=== PATIENT | female | born 1930 | race Caucasian/White ===

== ENCOUNTER 2019-04-01 13:51 | Inpatient (IN) | payer MEDICARE, BC ==
[2019-04-01] MEDS ORDERED: NS 0.9% 1000 ML** 1,000 ML IV ONE (14:06)
[2019-04-01] MEDS ORDERED: methylPREDNISolone 125 MG* 2 ML VIAL IV ONE (14:06)
[2019-04-01] MEDS ORDERED: Albuterol/Ipratropium NEB.SOL* Albuterol 2.5 MG/Ipratropium 0.5 MG 3 ML ONE (14:11)
[2019-04-01] MEDS: Albuterol/Ipratropium NEB.SOL* Albuterol 2.5 MG/Ipratropium 0.5 MG 3 ML INH SCH ×3 (14:14→14:20)
[2019-04-01 14:33] LABS: ABS Lymphocytes 0.3 10^3/ul (1.0-4.8); ABS Monocytes 0.4 10^3/ul (0-0.8); ABS Neutrophils 5.5 10^3/ul (1.5-7.7); Eosinophil % 0.5 %; Hematocrit 43 % (35-47); Hemoglobin 13.9 g/dL (12.0-16.0); Lymphocyte % 5.3 %; Mean Corpuscular HGB Conc 32 g/dL (31-36); Mean Corpuscular Hemoglobin 30 pg (27-31); Mean Corpuscular Volume 92 fL (80-97); Mean Platelet Volume 8.3 fL (7.4-10.4); Platelet Count 159 10^3/uL (150-450); Red Cell Distribution Width 14 % (10-15); White Blood Count 6.2 10^3/uL (3.5-10.8)
--- NOTE | 2019-04-01 14:43 | ED ---
Shortness of Breath - HPI Summary HPI Summary: Pt is an 88 y/o F presenting to the ED brought in by EMS for shortness of breath. LEVEL 5 CAVEAT: Pts full hx and physical is limited due to shortness of breath. EMS gave 1 Duoneb and 1 Albuterol neb. Her SaO2 was in the 80s on 4L O2 nasal cannula. Pts daughter states she has been feeling hot and cold recently, and has been fatigued since this past 03/30/19. - History of Current Complaint Chief Complaint: EDRespiratoryDistress Time Seen by Provider: 04/01/19 13:58 Hx Obtained From: Family/Shuttle Driver, EMS Hx From Patient Unobtainable Due To: Other - shortness of breath Onset/Duration: Gradual Onset, Lasting Days, Still Present Timing: Constant Current Severity: Severe Dyspnea At: Rest Aggravating Factors: Nothing Alleviating Factors: Nothing Associated Signs & Symptoms: Fever, Chills - Allergy/Home Medications Allergies/Adverse Reactions: Allergies Allergy/AdvReac Type Severity Reaction Status Date / Time No Known Allergies Allergy Verified 07/26/15 12:40 Home Medications: Home Medications Cholecalciferol TAB* [Vitamin D TAB*] 400 unit PO DAILY 04/01/19 [History Confirmed 04/01/19] Metoprolol Succinate XL TAB* [Toprol XL TAB*] 25 mg PO DAILY 04/01/19 [History Confirmed 04/01/19] Multivitamins/Minerals TAB* [Theragran/minerals TAB*] 1 tab PO DAILY 04/01/19 [ History Confirmed 04/01/19] PMH/Surg Hx/FS Hx/Imm Hx Previously Healthy: Yes Endocrine/Hematology History: Denies: Hx Diabetes Cardiovascular History: Reports: Hx Aneurysm - Abdominal, Hx Hypertension Respiratory History: Reports: 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 History: Denies: Hx Dialysis, Hx Renal Disease Musculoskeletal History: Reports: Other Musculoskeletal History - R hip fx and surgery Denies: Hx Back Problems Sensory History: Reports: Hx Glaucoma, Hx Macular Degeneration Denies: Hx Contacts or Glasses, Hx Hearing Aid Opthamlomology History: Reports: Hx Glaucoma, Hx Macular Degeneration Denies: Hx Contacts or Glasses Neurological History: Denies: Hx Dementia, Hx Seizures - Surgical History Surgery Procedure, Year, and Place: Pt reports R hip repair for fx in 2011, states placement of "a metal plate and 2 bolts" Infectious Disease History: No Infectious Disease History: Denies: Traveled Outside the [place] in Last 30 Days - Family History Known Family History: Positive: Other - FHx unobtainable d/t pt's shortness of breath - Social History Alcohol Use: None Alcohol Amount: drinks glass of wine before dinner every night Hx Substance Use: No Substance Use Type: Reports: None Hx Tobacco Use: Yes Smoking Status (MU): Former Smoker Review of Systems - ROS Summary Review of Systems Summary: LEVEL 5 CAVEAT: Full hx and physical unobtainable d/t pt's shortness of breath. Positive: Fever, Chills Positive: Shortness Of Breath All Other Systems Reviewed And Are Negative: No Physical Exam - Summary Physical Exam Summary: VITAL SIGNS: Reviewed. GENERAL: Patient is a well-developed and nourished elderly female who is older for her age. She has some anxiety secondary to her shortness of breath. HEAD AND FACE: No signs of trauma. No ecchymosis, hematomas or skull depressions. No sinus tenderness. EYES: PERRLA, EOMI x 2, No injected conjunctiva, no nystagmus. EARS: Hearing grossly intact. Ear canals and tympanic membranes are within normal limits. MOUTH: Oropharynx within normal limits. NECK: Supple, trachea is midline, no adenopathy, no JVD, no carotid bruit, no c- spine tenderness, neck with full ROM. CHEST: Symmetric, no tenderness at palpation. LUNGS: Unable to speak in full sentences. Decreased breath sounds bilaterally. Using intercostal muscles. CVS: Regular rate and rhythm, S1 and S2 present, no murmurs or gallops appreciated. ABDOMEN: Soft, non-tender. No signs of distention. No rebound, no guarding, and no masses palpated. Bowel sounds are normal. EXTREMITIES: FROM in all major joints, no edema, no cyanosis or clubbing. NEURO: Alert and oriented x 3. No acute neurological deficits. Speech is normal and follows commands. SKIN: Dry and warm. Triage Information Reviewed: Yes Vital Signs On Initial Exam: Initial Vitals Temp Pulse Resp BP Pulse Ox 98.7 F 81 28 210/77 88 04/01/19 13:59 04/01/19 13:59 04/01/19 13:59 04/01/19 13:59 04/01/19 13:59 Vital Signs Reviewed: Yes Procedures - Sedation Patient Received Moderate/Deep Sedation with Procedure: No Diagnostics - Vital Signs Vital Signs Temp Pulse Resp BP Pulse Ox 04/01/19 14:34 73 18 95 04/01/19 13:59 98.7 F 81 28 210/77 88 - Laboratory Lab Results: Lab Results 04/01/19 04/01/19 Range/Units 14:05 14:13 WBC 6.2 (3.5-10.8) 10^3/uL RBC 4.70 (3.70-4.87) 10^6 /uL Hgb 13.9 (12.0-16.0) g/dL Hct 43 (35-47) % MCV 92 (80-97) fL MCH 30 (27-31) pg MCHC 32 (31-36) g/dL RDW 14 (10-15) % Plt Count 159 (150-450) 10^3/uL MPV 8.3 (7.4-10.4) fL Neut % (Auto) 88.2 % Lymph % (Auto) 5.3 % [place] % (Auto) 5.8 % Eos % (Auto) 0.5 % Baso % (Auto) 0.2 % Absolute Neuts (auto) 5.5 (1.5-7.7) 10^3/ul Absolute Lymphs (auto) 0.3 L (1.0-4.8) 10^3/ul Absolute Monos (auto) 0.4 (0-0.8) 10^3/ul Absolute Eos (auto) 0.0 (0-0.6) 10^3/ul Absolute Basos (auto) 0.0 (0-0.2) 10^3/ul Absolute Nucleated RBC 0.0 10^3/ul Nucleated RBC % 0.0 Patient Temperature Not Reportable ABG pH 7.17 L* (7.35-7.45) ABG pH (Temp Correct) Not Reportable ABG pCO2 Not Reportable ABG pCO2 (Temp Corrct Pending ABG pO2 64 L (80-100) mmHg ABG pO2 (Temp Correct Not Reportable ABG HCO3 TNP ABG O2 Saturation 92.0 L (94.0-98.0) % ABG Base Excess TNP Respiration Rate Not Reportable O2 Delivery Device nasal cannula 6lpm Ventilator Type Not Reportable Vent Mode Not Reportable FiO2 Not Reportable Inspiratory Time Not Reportable PEEP Not Reportable Pressure Support Not Reportable Pressure Control Not Reportable EPAP Not Reportable IPAP Not Reportable BiPAP Not Reportable Result Diagrams: 04/01/19 14:13 04/01/19 14:17 Lab Statement: Any lab studies that have been ordered have been reviewed, and results considered in the medical decision making process. - Radiology CXR Radiology Interpretation Completed By: Radiologist Summary of Radiographic Findings: PULMONARY INTERSTITIAL EDEMA WITH BILATERAL, RIGHT GREATER THAN LEFT, PLEURAL fusions. ED physician has reviewed this report. - EKG 1427 Cardiac Rate: NL - 79bpm EKG Rhythm: Sinus Rhythm ST Segment: Other Ectopy: None EKG Comparison: No Significant Change Summary of EKG Findings: EKG at 1427 shows NSR at 79bpm with ST elevations in lead I, aVL, v2, and v3. Similar to last EKG on 04/01/18. ED physician has reviewed and interpreted this report. Course/Dx - Course Assessment/Plan: Patient is an 88-year-old female who presents to the emergency department with a chief complaint of having shortness of breath. Patient has a history of COPD. The patient seems to be with respiratory distress therefore the present patient in oxygen, monitor, was to do an IV access the patient started with Solu-Medrol and DuoNebs. ABG shows a pH of 7.15, PCO2 more than 125, O2 sat 98. Therefore the patient was placed on BiPAP. CMP were normal limits except for chloride of 89, carbon dioxide 44, BUN 27, glucose 125, CRP 44 and BMP. I 121. Chest x-ray impression: Interstitial edema bilaterally, the right greater than left pleural effusion. At this point the patient is feeling better with the BiPAP. I discussed my physical exam and findings with Dr. Chow from the hospitalist services who accepted the patient for admission. - Diagnoses Provider Diagnoses: COPD exacerbation, Respiratory failure - Physician Notifications Discussed Care of Patient With: Deena Chow Time Discussed With Above Provider: 15:00 Instructed by Provider To: Admit As Inpatient Discharge ED - Sign-Out/Discharge Documenting (check all that apply): Patient Departure - Discharge Plan Condition: Stable Disposition: ADMITTED TO [facility] - Billing Disposition and Condition Condition: STABLE Disposition: Admitted to [facility] - Attestation Statements Document Initiated by Vince: Yes Documenting Scribe: Misa Van Provider For Whom Vince is Documenting (Include Credential): Christoph Bearden MD. Scribe Attestation: IMisa, scribed for Christoph Bearden MD. on 04/01/19 at 1855. Scribe Documentation Reviewed: Yes Provider Attestation: The documentation as recorded by the scribe, Misa Van accurately reflects the service I personally performed and the decisions made by me, Christoph Bearden MD. Status of Scribe Document: Viewed
[2019-04-01 14:55] LABS: Activated Partial Thrombo Time 33.3 seconds (26.0-38.0); INR 0.89 (0.82-1.09); Troponin I 0.03 ng/mL (<0.04)
[2019-04-01 14:57] LABS: CKMB ng/mL 4.4 ng/mL (0.6-6.3)
[2019-04-01 15:09] LABS: Albumin 3.6 g/dL (3.2-5.2); Albumin/Globulin Ratio 1.1 (1-3); BUN/Creatinine Ratio 32.5 (8-20); C Reactive Protein 44.46 mg/L (<8.01); Calcium 9.3 mg/dL (8.6-10.3); EGFR African American 78.5 (>60); EGFR Non-African American 64.9 (>60); Globulin 3.4 g/dL (2-4); Potassium 4.8 mmol/L (3.5-5.0); Total Bilirubin 0.5 mg/dL (0.2-1.0)
[2019-04-01] MEDS ORDERED: hydrALAZINE IV* 20 MG/ML VIAL IV SLOW PU PRN (15:35)
[2019-04-01] MEDS ORDERED: Albuterol 2.5 MG/3 ML NEB.SOL* (0.083%) INH SCH (16:00)
--- NOTE | 2019-04-01 16:36 | HP ---
CC: DELON Landon * HISTORY AND PHYSICAL: DATE OF ADMISSION: 04/01/19 PRIMARY CARE PROVIDER: DELON Landon CHIEF COMPLAINT: Shortness of breath. HISTORY OF PRESENT ILLNESS: Ms. Fisher is an 88-year-old female who has a history of O2 dependent COPD, who presents to the emergency room with complaints of shortness of breath. The patient's daughter provides all of the history as the patient is on the BiPAP. The patient's daughter states that at baseline, the patient becomes short of breath such as ambulating to the bathroom which is a short distance. Over the last 2 days, however, the patient has been short of breath at rest and has been grunting. The patient's daughter has recognized the patient was struggling. Sunday evening, the patient was noted to be hypoxic to 55% when her O2 had slipped off. Her oxygen was replaced and the patient did better. The patient again became hypoxic overnight. The patient has had no appetite. She has had no significant cough. When she does cough, it is dry. She has not had any fevers or chills. PAST MEDICAL HISTORY: 1. COPD. 2. Hypertension. 3. Hyperlipidemia. 4. Diastolic congestive heart failure. 5. Pulmonary hypertension. PAST SURGICAL HISTORY: Left hip ORIF. MEDICATIONS: 1. Vitamin D 400 units p.o. daily. 2. Multivitamin 1 tab p.o. daily. 3. Aspirin 81 mg p.o. daily. 4. Metoprolol XL 25 mg p.o. daily. 5. Lasix 20 mg p.o. daily. 6. Lipitor 40 mg p.o. daily. 7. Travoprost 1 drop to both eyes at bedtime. 8. Timolol 1 drop to the left eye twice daily. ALLERGIES: No known drug allergies. FAMILY HISTORY: Mom of CVA. Dad had emphysema. SOCIAL HISTORY: The patient quit smoking in 2010. She smoked for most of her life. She does drink a small glass of wine before dinner. 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 She is . She has 6 children, 2 of which are . The patient's daughter, who is present, states that there is no healthcare proxy designated as the patient's children would all like to make the decisions together. REVIEW OF SYSTEMS: Unobtainable from the patient. PHYSICAL EXAMINATION GENERAL: The patient is a well-developed elderly female, seen sitting upright in the stretcher, somewhat lethargic, but response to voice and in no acute distress, on BiPAP. VITAL SIGNS: Blood pressure 179/73, pulse 77, respirations 19, temp 98.7, O2 sat 95% on BiPAP. HEENT: Pupils are round. Extraocular muscles are intact. Oropharynx is dry. There is no submandibular, cervical, or supraclavicular adenopathy. PULMONARY: Breath sounds are markedly diminished throughout. There is very poor air movement. There is no wheezing noted. CARDIAC: Normal S1, S2. Regular rate and rhythm. I do not appreciate any murmurs, though heart sounds are very distant. There is no lower extremity edema. ABDOMEN: Bowel sounds are present. Abdomen is soft, nontender, nondistended. MUSCULOSKELETAL: There is no cyanosis or clubbing of the digits. There is full active range of motion of all 4 extremities. NEURO: Exam is deferred at this point due to the patient's lethargy. PSYCH: The patient is lethargic as noted above. SKIN: Warm and dry. There are no rashes. DIAGNOSTIC STUDIES/LAB DATA: WBC 6.2, hemoglobin 13.9, hematocrit 43, platelets 159. INR 0.89. Sodium 137, potassium 4.8, chloride 89, CO2 of 44, BUN 27, creatinine 0.83, glucose 123, lactic acid 0.6, calcium 9.3. Bilirubin 0.5, AST 31, ALT 21, alk phos 90. CK-MB 4.4. Troponin 0.03. CRP 44.46. BNP 521. Albumin 3.6. ABG 7.17/greater than 125/64, on 6 L nasal cannula. Chest x-ray reveals pulmonary interstitial edema with bilateral right greater than left pleural effusions. EKG reveals normal sinus rhythm with right bundle branch block. There are no acute ST-T wave abnormalities. ASSESSMENT AND PLAN: Ms. Fisher is an 88-year-old female with a history of O2 dependent chronic obstructive pulmonary disease with a chronic hypoxic respiratory failure and hypertension, who presents to the emergency room with complaints of shortness of breath for the last few days and was found to be in hypercarbic respiratory failure. 1. Hypercarbic respiratory failure likely secondary to chronic obstructive pulmonary disease. The patient's ABG reveals pCO2 of greater than 125. Her pH is markedly low at 7.17. The patient has been initiated on BiPAP and with this , she has become slightly more alert per her daughter. We will follow ABG testing to ensure that her CO2 is improving. I have confirmed with the patient' s daughter that the patient is a do not resuscitate and do not intubate. The patient will be treated for a chronic obstructive pulmonary disease exacerbation as the cause of her hypercarbic respiratory failure. She will have azithromycin 500 mg IV daily, Solu-Medrol 40 mg IV q.8 hours and standing nebulizer treatments. We will follow up tomorrow to see if she is able to be liberated from the BiPAP. 2. Hypertension. BP is markedly elevated at this time. The patient will be maintained on her usual home medication regimen and in addition, I will add p.r.n. hydralazine for systolic blood pressures greater than 170. 3. DVT prophylaxis. According to the Adult Thrombosis Prophylaxis Risk Factor Assessment Guide, the patient has a total risk factor score of 4 making her high risk. She will be placed on Lovenox 40 mg subcutaneous daily. 4. Code status is DNR/DNI. TIME SPENT: Sixty-five minutes was spent admitting this patient. [id number]/[facility] #: [id number] JESSICA
[2019-04-01] MEDS: Atorvastatin* 40 MG TAB PO SCH (18:00)
[2019-04-01] MEDS: Azithromycin 500 mg/250 ml NS 500 MG/250 ML BAG IVPB SCH (18:01)
[2019-04-01] MEDS: Albuterol 2.5 MG/3 ML NEB.SOL* (0.083%) INH SCH ×2 (19:42→23:10)
[2019-04-01] MEDS: Timolol 0.5% OPTH.SOL* BTL LEFT EYE SCH (20:35)
[2019-04-01] MEDS: methylPREDNISolone SOD 40 MG* 1 ML VIAL IV SCH (21:34)
[2019-04-01] MEDS: Latanoprost 0.005%* 2.5 ml BTL BOTH EYES SCH (21:35)
[2019-04-01] MEDS: Enoxaparin(*) 40 MG/0.4 ML SYR SUBCUT SCH (21:35)
[2019-04-02] MEDS: Albuterol 2.5 MG/3 ML NEB.SOL* (0.083%) INH SCH ×4 (02:59→19:32)
[2019-04-02] MEDS: methylPREDNISolone SOD 40 MG* 1 ML VIAL IV SCH ×3 (05:06→22:30)
[2019-04-02 05:28] LABS: Hematocrit 38 % (35-47); Mean Corpuscular HGB Conc 32 g/dL (31-36); Mean Corpuscular Hemoglobin 29 pg (27-31); Mean Corpuscular Volume 92 fL (80-97); Mean Platelet Volume 8.7 fL (7.4-10.4); Platelet Count 148 10^3/uL (150-450); Red Blood Count 4.11 10^6 /uL (3.70-4.87); Red Cell Distribution Width 13 % (10-15); White Blood Count 3.2 10^3/uL (3.5-10.8)
[2019-04-02 05:40] LABS: BUN/Creatinine Ratio 36.5 (8-20); Calcium 8.7 mg/dL (8.6-10.3); EGFR African American 89.6 (>60); EGFR Non-African American 74.1 (>60)
[2019-04-02 05:51] LABS: Potassium 5.3 mmol/L (3.5-5.0)
[2019-04-02 06:28] LABS: Urine Appearance Cloudy; Urine Bacteria Absent (Absent); Urine Bilirubin Negative (Negative); Urine Blood 1+ (Negative); Urine Color Yellow; Urine Glucose Negative (Negative); Urine Ketones Negative (Negative); Urine Nitrite Negative (Negative); Urine Protein 1+(30 mg/dL) (Negative); Urine Red Blood Cell Absent (Absent); Urine Squamous Epithelial Cell Present (Absent); Urine Transitional Epithelial Present (Absent); Urine Urobilinogen Negative (Negative); Urine White Blood Cell 2+(11-20/hpf) (Absent)
[2019-04-02] MEDS: Metoprolol Succinate XL TAB* 25 MG PO SCH (09:19)
[2019-04-02] MEDS: Multivitamins/Minerals TAB PO SCH (09:19)
[2019-04-02] MEDS: Timolol 0.5% OPTH.SOL* BTL LEFT EYE SCH ×2 (09:19→22:15)
[2019-04-02] MEDS: Aspirin EC TAB* 81 MG TAB.EC PO SCH (09:19)
--- NOTE | 2019-04-02 09:59 | PN ---
Subjective Date of Service: 04/02/19 Interval History: Pt is feeling much better today. She is much more alert and close to her baseline per her daughter. Her breathing is comfortable currently. Objective Active Medications: Albuterol (Ventolin 2.5 Mg/3 Ml Neb.Kitty*) 2.5 mg INH Q4H [facility] Last Admin: 04/02/19 08:06 Dose: 2.5 mg Aspirin (Aspirin Ec Tab*) 81 mg PO DAILY [facility] Last Admin: 04/02/19 09:19 Dose: 81 mg Atorvastatin Calcium (Lipitor*) 40 mg PO 1700 [facility] Last Admin: 04/01/19 18:00 Dose: Not Given Enoxaparin Sodium (Lovenox(*)) 40 mg SUBCUT Q24H [facility] Last Admin: 04/01/19 21:35 Dose: 40 mg Hydralazine HCl (Apresoline Iv*) 5 mg IV SLOW PU Q6H PRN PRN Reason: SBP>170 Azithromycin (Zithromax 500 Mg/250 Ml) 500 mg in 250 mls @ 250 mls/hr IVPB Q24H [facility] Last Admin: 04/01/19 18:01 Dose: 250 mls/hr Latanoprost (Xalatan 0.005%*) 1 drop BOTH EYES BEDTIME [facility] Last Admin: 04/01/19 21:35 Dose: Not Given Methylprednisolone Sodium Succinate (Solu-Medrol 40 Mg) 40 mg IV Q8HR [facility] Last Admin: 04/02/19 05:06 Dose: 40 mg Metoprolol Succinate (Toprol Xl Tab*) 25 mg PO DAILY [facility] Last Admin: 04/02/19 09:19 Dose: 25 mg Multivitamins/Minerals (Theragran/Minerals Tab*) 1 tab PO DAILY [facility] Last Admin: 04/02/19 09:19 Dose: 1 tab Timolol Maleate (Timoptic 0.5% Opth*) 1 drop LEFT EYE BID [facility] Last Admin: 04/02/19 09:19 Dose: 1 drop Vital Signs - 8 hr 04/02/19 04/02/19 04/02/19 02:00 02:01 02:25 Temperature Pulse Rate 84 85 Respiratory 22 24 29 Rate Blood Pressure 102/49 (mmHg) O2 Sat by Pulse 97 100 Oximetry 04/02/19 04/02/19 04/02/19 02:59 03:00 03:01 Temperature Pulse Rate 80 79 Respiratory 20 15 22 Rate Blood Pressure 86/49 (mmHg) O2 Sat by Pulse 100 100 Oximetry 04/02/19 04/02/19 04/02/19 03:15 04:00 05:00 Temperature 99.9 F Pulse Rate 81 87 Respiratory 25 18 24 Rate Blood Pressure 86/47 116/41 (mmHg) O2 Sat by Pulse 100 99 Oximetry 04/02/19 04/02/19 04/02/19 05:01 06:00 06:10 Temperature Pulse Rate 83 79 79 Respiratory 20 20 34 Rate Blood Pressure 86/72 88/43 91/45 (mmHg) O2 Sat by Pulse 99 98 98 Oximetry 04/02/19 04/02/19 04/02/19 06:12 07:00 07:30 Temperature 98.5 F Pulse Rate 80 77 Respiratory 19 24 Rate Blood Pressure 93/46 97/51 (mmHg) O2 Sat by Pulse 99 99 Oximetry 04/02/19 04/02/19 08:00 08:15 Temperature Pulse Rate 79 90 Respiratory 23 20 Rate Blood Pressure 92/53 (mmHg) O2 Sat by Pulse 99 95 Oximetry Oxygen Devices in Use Now: Nasal Cannula Appearance: Elderly female sitting up in bed, NAD Eyes: No Scleral Icterus Ears/Nose/Mouth/Throat: Mucous Membranes Moist Respiratory: Symmetrical Chest Expansion and Respiratory Effort, Clear to Auscultation - much improved air movement Cardiovascular: NL Sounds; No Murmurs; No JVD, RRR, No Edema Abdominal: NL Sounds; No Tenderness; No Distention Extremities: No Clubbing, Cyanosis Skin: No Nodules or Sclerosis Neurological: Alert and Oriented x 3 Result Diagrams: 04/02/19 05:14 04/02/19 05:14 Additional Lab and Data: Lab Results 04/01/19 04/01/19 Range/Units 14:05 14:13 WBC 6.2 (3.5-10.8) 10^3/uL RBC 4.70 (3.70-4.87) 10^6 /uL Hgb 13.9 (12.0-16.0) g/dL Hct 43 (35-47) % MCV 92 (80-97) fL MCH 30 (27-31) pg MCHC 32 (31-36) g/dL RDW 14 (10-15) % Plt Count 159 (150-450) 10^3/uL MPV 8.3 (7.4-10.4) fL Neut % (Auto) 88.2 % Lymph % (Auto) 5.3 % Bent % (Auto) 5.8 % Eos % (Auto) 0.5 % Baso % (Auto) 0.2 % Absolute Neuts (auto) 5.5 (1.5-7.7) 10^3/ul Absolute Lymphs (auto) 0.3 L (1.0-4.8) 10^3/ul Absolute Monos (auto) 0.4 (0-0.8) 10^3/ul Absolute Eos (auto) 0.0 (0-0.6) 10^3/ul Absolute Basos (auto) 0.0 (0-0.2) 10^3/ul Absolute Nucleated RBC 0.0 10^3/ul Nucleated RBC % 0.0 Patient Temperature Not Reportable ABG pH 7.17 L* (7.35-7.45) ABG pH (Temp Correct) Not Reportable ABG pCO2 Not Reportable ABG pCO2 (Temp Corrct Pending ABG pO2 64 L (80-100) mmHg ABG pO2 (Temp Correct Not Reportable ABG HCO3 TNP ABG O2 Saturation 92.0 L (94.0-98.0) % ABG Base Excess TNP Respiration Rate Not Reportable O2 Delivery Device nasal cannula 6lpm Ventilator Type Not Reportable Vent Mode Not Reportable FiO2 Not Reportable Inspiratory Time Not Reportable PEEP Not Reportable Pressure Support Not Reportable Pressure Control Not Reportable EPAP Not Reportable IPAP Not Reportable BiPAP Not Reportable Assess/Plan/Problems-Billing Ms Fisher is an 88 yo F who has a h/o COPD with chronic hypoxic respiratory failure, HTN and diastolic CHF who presented to the ER with lethargy and was found to be in hypercapnic respiratory failure. - Patient Problems (1) Acute on chronic respiratory failure with hypercapnia Current Visit: Yes Status: Acute Code(s): J96.22 - ACUTE AND CHRONIC RESPIRATORY FAILURE WITH HYPERCAPNIA SNOMED Code(s): 9512331479870 Comment: Last ABG obtained last night showed improvement in the pCO2 though it was still markedly elevated. I think she would benefit from BiPAP with sleep. Will try to qualify her to have this set up on d/c. (2) Diastolic CHF Current Visit: Yes Status: Acute Code(s): I50.30 - UNSPECIFIED DIASTOLIC ( CONGESTIVE) HEART FAILURE SNOMED Code(s): 941488637 Comment: No signs of exacerbation. Continue to hold lasix for now but will likely resume in the next 24-36hr. (3) COPD (chronic obstructive pulmonary disease) Current Visit: Yes Status: Acute Code(s): J44.9 - CHRONIC OBSTRUCTIVE PULMONARY DISEASE, UNSPECIFIED SNOMED Code(s): 14296007 Comment: Likely COPD exacerbation lead to hypercapnic respiratory failure. Continue solumedrol, azithromycin and nebs. Pt much improved today. (4) Hypertension Current Visit: Yes Status: Acute Code(s): I10 - ESSENTIAL (PRIMARY) HYPERTENSION SNOMED Code(s): 32985062 Comment: BP much improved today but now slightly low- will monitor. (5) DVT prophylaxis Current Visit: Yes Status: Acute Code(s): UGU3689 - SNOMED Code(s): 851484886 Comment: lovenox (6) DNR (do not resuscitate) Current Visit: Yes Status: Acute
[2019-04-02] MEDS: Azithromycin 500 mg/250 ml NS 500 MG/250 ML BAG IVPB SCH (17:31)
[2019-04-02] MEDS: Atorvastatin* 40 MG TAB PO SCH (17:31)
[2019-04-02] MEDS: Latanoprost 0.005%* 2.5 ml BTL BOTH EYES SCH (22:18)
[2019-04-02] MEDS: Enoxaparin(*) 40 MG/0.4 ML SYR SUBCUT SCH (22:19)
[2019-04-03] MEDS: Albuterol 2.5 MG/3 ML NEB.SOL* (0.083%) INH SCH ×4 (00:52→18:54)
[2019-04-03] MEDS: methylPREDNISolone SOD 40 MG* 1 ML VIAL IV SCH ×3 (05:26→21:48)
[2019-04-03] MEDS: Aspirin EC TAB* 81 MG TAB.EC PO SCH (08:22)
[2019-04-03] MEDS: Multivitamins/Minerals TAB PO SCH (08:23)
[2019-04-03] MEDS: Metoprolol Succinate XL TAB* 25 MG PO SCH (08:25)
[2019-04-03] MEDS: Timolol 0.5% OPTH.SOL* BTL LEFT EYE SCH ×2 (08:27→21:48)
--- NOTE | 2019-04-03 14:13 | PN ---
Subjective Date of Service: 04/03/19 Interval History: Pt is feeling well. She denies any SOB currently. O2 was being weaned down by respiratory and when checked her O2 sat was 80%. Placed on oxymask and 10L. No significant cough. Objective Active Medications: Albuterol (Ventolin 2.5 Mg/3 Ml Neb.Kitty*) 2.5 mg INH [id number] AWAKE [facility] Last Admin: 04/03/19 12:20 Dose: 2.5 mg Aspirin (Aspirin Ec Tab*) 81 mg PO DAILY [facility] Last Admin: 04/03/19 08:22 Dose: 81 mg Atorvastatin Calcium (Lipitor*) 40 mg PO 1700 [facility] Last Admin: 04/02/19 17:31 Dose: 40 mg Enoxaparin Sodium (Lovenox(*)) 40 mg SUBCUT Q24H [facility] Last Admin: 04/02/19 22:19 Dose: 40 mg Hydralazine HCl (Apresoline Iv*) 5 mg IV SLOW PU Q6H PRN PRN Reason: SBP>170 Azithromycin (Zithromax 500 Mg/250 Ml) 500 mg in 250 mls @ 250 mls/hr IVPB Q24H [facility] Last Admin: 04/02/19 17:31 Dose: 250 mls/hr Latanoprost (Xalatan 0.005%*) 1 drop BOTH EYES BEDTIME [facility] Last Admin: 04/02/19 22:18 Dose: 1 drop Methylprednisolone Sodium Succinate (Solu-Medrol 40 Mg) 40 mg IV Q8HR [facility] Last Admin: 04/03/19 05:26 Dose: 40 mg Metoprolol Succinate (Toprol Xl Tab*) 25 mg PO DAILY [facility] Last Admin: 04/03/19 08:25 Dose: 25 mg Multivitamins/Minerals (Theragran/Minerals Tab*) 1 tab PO DAILY [facility] Last Admin: 04/03/19 08:23 Dose: 1 tab Timolol Maleate (Timoptic 0.5% Opth*) 1 drop LEFT EYE BID [facility] Last Admin: 04/03/19 08:27 Dose: 1 drop Vital Signs - 8 hr 04/03/19 04/03/19 04/03/19 07:14 07:18 07:38 Temperature 98.1 F Pulse Rate 82 76 Respiratory 18 18 18 Rate Blood Pressure 98/44 (mmHg) O2 Sat by Pulse 97 99 Oximetry 04/03/19 04/03/19 04/03/19 08:17 11:08 12:23 Temperature 98.3 F Pulse Rate 79 75 Respiratory 22 17 Rate Blood Pressure 154/60 170/59 (mmHg) O2 Sat by Pulse 93 98 Oximetry Oxygen Devices in Use Now: Nasal Cannula Appearance: Elderly female lying in bed, NAD Eyes: No Scleral Icterus Ears/Nose/Mouth/Throat: Mucous Membranes Moist Respiratory: Symmetrical Chest Expansion and Respiratory Effort, - - diminished breath sounds throughout-less air movement than yesterday Cardiovascular: NL Sounds; No Murmurs; No JVD, RRR, No Edema Abdominal: NL Sounds; No Tenderness; No Distention Extremities: No Clubbing, Cyanosis Skin: No Nodules or Sclerosis Neurological: - - sleepy but easily arousable Result Diagrams: 04/02/19 05:14 04/02/19 05:14 Additional Lab and Data: Lab Results 04/01/19 04/01/19 Range/Units 14:05 14:13 WBC 6.2 (3.5-10.8) 10^3/uL RBC 4.70 (3.70-4.87) 10^6 /uL Hgb 13.9 (12.0-16.0) g/dL Hct 43 (35-47) % MCV 92 (80-97) fL MCH 30 (27-31) pg MCHC 32 (31-36) g/dL RDW 14 (10-15) % Plt Count 159 (150-450) 10^3/uL MPV 8.3 (7.4-10.4) fL Neut % (Auto) 88.2 % Lymph % (Auto) 5.3 % Mckenzie % (Auto) 5.8 % Eos % (Auto) 0.5 % Baso % (Auto) 0.2 % Absolute Neuts (auto) 5.5 (1.5-7.7) 10^3/ul Absolute Lymphs (auto) 0.3 L (1.0-4.8) 10^3/ul Absolute Monos (auto) 0.4 (0-0.8) 10^3/ul Absolute Eos (auto) 0.0 (0-0.6) 10^3/ul Absolute Basos (auto) 0.0 (0-0.2) 10^3/ul Absolute Nucleated RBC 0.0 10^3/ul Nucleated RBC % 0.0 Patient Temperature Not Reportable ABG pH 7.17 L* (7.35-7.45) ABG pH (Temp Correct) Not Reportable ABG pCO2 Not Reportable ABG pCO2 (Temp Corrct Pending ABG pO2 64 L (80-100) mmHg ABG pO2 (Temp Correct Not Reportable ABG HCO3 TNP ABG O2 Saturation 92.0 L (94.0-98.0) % ABG Base Excess TNP Respiration Rate Not Reportable O2 Delivery Device nasal cannula 6lpm Ventilator Type Not Reportable Vent Mode Not Reportable FiO2 Not Reportable Inspiratory Time Not Reportable PEEP Not Reportable Pressure Support Not Reportable Pressure Control Not Reportable EPAP Not Reportable IPAP Not Reportable BiPAP Not Reportable Microbiology and Other Data: Microbiology 04/01/19 14:17 Aerobic Blood Culture - Preliminary Blood Venous No Growth Day 1 Anaerobic Blood Culture - Preliminary No Growth Day 1 04/01/19 14:22 Aerobic Blood Culture - Preliminary Blood Venous No Growth Day 1 Anaerobic Blood Culture - Preliminary No Growth Day 1 Assess/Plan/Problems-Billing Ms Fisher is an 88 yo F who has a h/o COPD with chronic hypoxic respiratory failure, HTN and diastolic CHF who presented to the ER with lethargy and was found to be in hypercapnic respiratory failure. - Patient Problems (1) Acute on chronic respiratory failure with hypercapnia Current Visit: Yes Status: Acute Code(s): J96.22 - ACUTE AND CHRONIC RESPIRATORY FAILURE WITH HYPERCAPNIA SNOMED Code(s): 1502286655729 Comment: Improved with use of BiPAP with sleep. I am trying to qualify the patient for BiPAP at home. (2) COPD (chronic obstructive pulmonary disease) Current Visit: Yes Status: Acute Code(s): J44.9 - CHRONIC OBSTRUCTIVE PULMONARY DISEASE, UNSPECIFIED SNOMED Code(s): 35984040 Comment: Likely COPD exacerbation lead to hypercapnic respiratory failure. Continue solumedrol (change to prednisone starting tomorrow), azithromycin and nebs. Pt not quite as good today. Reassess tomorrow- if worse again will discuss palliative consult with the patient and her daughter. (3) Diastolic CHF Current Visit: Yes Status: Acute Code(s): I50.30 - UNSPECIFIED DIASTOLIC ( CONGESTIVE) HEART FAILURE SNOMED Code(s): 671545105 Comment: No signs of exacerbation. Resume lasix at home dose. (4) Hypertension Current Visit: Yes Status: Acute Code(s): I10 - ESSENTIAL (PRIMARY) HYPERTENSION SNOMED Code(s): 29139439 Comment: BP is very variable. Will continue to monitor. (5) DVT prophylaxis Current Visit: Yes Status: Acute Code(s): KWE2368 - SNOMED Code(s): 481207134 Comment: sonali (6) DNR (do not resuscitate) Current Visit: Yes Status: Acute
[2019-04-03] MEDS: Azithromycin 500 mg/250 ml NS 500 MG/250 ML BAG IVPB SCH (18:17)
[2019-04-03] MEDS: Atorvastatin* 40 MG TAB PO SCH (18:17)
[2019-04-03] MEDS: Enoxaparin(*) 40 MG/0.4 ML SYR SUBCUT SCH (21:48)
[2019-04-03] MEDS: Latanoprost 0.005%* 2.5 ml BTL BOTH EYES SCH (21:48)
[2019-04-04] MEDS: Albuterol 2.5 MG/3 ML NEB.SOL* (0.083%) INH SCH ×3 (01:05→14:11)
[2019-04-04] MEDS: Metoprolol Succinate XL TAB* 25 MG PO SCH (08:12)
[2019-04-04] MEDS: Aspirin EC TAB* 81 MG TAB.EC PO SCH (08:13)
[2019-04-04] MEDS: Multivitamins/Minerals TAB PO SCH (08:13)
[2019-04-04] MEDS: Timolol 0.5% OPTH.SOL* BTL LEFT EYE SCH (08:13)
[2019-04-04] MEDS ORDERED: predniSONE TAB* 20 MG PO SCH (09:00)
[2019-04-04] MEDS ORDERED: Furosemide TAB* 20 MG PO SCH (09:00)
[2019-04-04 12:34] VITALS: BP 170/58
[2019-04-04] MEDS ORDERED: amLODIPine TAB* 5 MG PO SCH (13:00)
--- NOTE | 2019-04-04 15:09 | PN ---
Subjective Date of Service: 04/04/19 Interval History: Pt is feeling well. She wants to leave. Her daughter thinks she is at her baseline mental status and respiratory status. She got up from bed to chair and did pretty good with that per her daughters. Objective Active Medications: Albuterol (Ventolin 2.5 Mg/3 Ml Neb.Kitty*) 2.5 mg INH [id number] AWAKE [facility] Last Admin: 04/04/19 14:11 Dose: Not Given Amlodipine Besylate (Norvasc Tab*) [address] [facility] Last Admin: 04/04/19 13:28 Dose: 5 mg Aspirin (Aspirin Ec Tab*) [address] [facility] Last Admin: 04/04/19 08:13 Dose: 81 mg Atorvastatin Calcium (Lipitor*) [address] [facility] Last Admin: 04/03/19 18:17 Dose: 40 mg Enoxaparin Sodium (Lovenox(*)) [address] [facility] Last Admin: 04/03/19 21:48 Dose: 40 mg Furosemide (Lasix Tab*) [address] [facility] Last Admin: 04/04/19 08:12 Dose: 20 mg Hydralazine HCl (Apresoline Iv*) 5 mg IV SLOW PU Q6H PRN PRN Reason: SBP>170 Azithromycin (Zithromax 500 Mg/250 Ml) 500 mg in 250 mls @ 250 mls/hr IVPB Q24H [facility] Last Admin: 04/03/19 18:17 Dose: 250 mls/hr Latanoprost (Xalatan 0.005%*) [address]ED[address] [facility] Last Admin: 04/03/19 21:48 Dose: 1 drop Metoprolol Succinate (Toprol Xl Tab*) [address] [facility] Last Admin: 04/04/19 08:12 Dose: 25 mg Multivitamins/Minerals (Theragran/Minerals Tab*) [address] [facility] Last Admin: 04/04/19 08:13 Dose: 1 tab Prednisone (Deltasone Tab*) [address] [facility] Last Admin: 04/04/19 08:13 Dose: 40 mg Timolol Maleate (Timoptic 0.5% Opth*) [address] [facility] Last Admin: 04/04/19 08:13 Dose: 1 drop Vital Signs - 8 hr 04/04/19 04/04/19 04/04/19 07:24 07:30 08:00 Temperature 98.5 F Pulse Rate 88 88 Respiratory 26 22 18 Rate Blood Pressure 173/60 (mmHg) O2 Sat by Pulse 70 90 Oximetry 04/04/19 04/04/19 10:06 11:32 Temperature 98.6 F Pulse Rate 76 Respiratory 26 Rate Blood Pressure 154/51 170/58 (mmHg) O2 Sat by Pulse 94 94 Oximetry Oxygen Devices in Use Now: Nasal Cannula Appearance: Elderly female sitting up in a chair, NAD Eyes: No Scleral Icterus Ears/Nose/Mouth/Throat: Mucous Membranes Moist Respiratory: Symmetrical Chest Expansion and Respiratory Effort, Clear to Auscultation - diminished throughout but clear Cardiovascular: NL Sounds; No Murmurs; No JVD, RRR, No Edema Abdominal: NL Sounds; No Tenderness; No Distention Extremities: No Clubbing, Cyanosis Skin: No Nodules or Sclerosis Neurological: Alert and Oriented x 3, - - sits with her eyes closed as she can not see Result Diagrams: 04/02/19 05:14 04/02/19 05:14 Additional Lab and Data: Lab Results 04/01/19 04/01/19 Range/Units 14:05 14:13 WBC 6.2 (3.5-10.8) 10^3/uL RBC 4.70 (3.70-4.87) 10^6 /uL Hgb 13.9 (12.0-16.0) g/dL Hct 43 (35-47) % MCV 92 (80-97) fL MCH 30 (27-31) pg MCHC 32 (31-36) g/dL RDW 14 (10-15) % Plt Count 159 (150-450) 10^3/uL MPV 8.3 (7.4-10.4) fL Neut % (Auto) 88.2 % Lymph % (Auto) 5.3 % [place] % (Auto) 5.8 % Eos % (Auto) 0.5 % Baso % (Auto) 0.2 % Absolute Neuts (auto) 5.5 (1.5-7.7) 10^3/ul Absolute Lymphs (auto) 0.3 L (1.0-4.8) 10^3/ul Absolute Monos (auto) 0.4 (0-0.8) 10^3/ul Absolute Eos (auto) 0.0 (0-0.6) 10^3/ul Absolute Basos (auto) 0.0 (0-0.2) 10^3/ul Absolute Nucleated RBC 0.0 10^3/ul Nucleated RBC % 0.0 Patient Temperature Not Reportable ABG pH 7.17 L* (7.35-7.45) ABG pH (Temp Correct) Not Reportable ABG pCO2 Not Reportable ABG pCO2 (Temp Corrct Pending ABG pO2 64 L (80-100) mmHg ABG pO2 (Temp Correct Not Reportable ABG HCO3 TNP ABG O2 Saturation 92.0 L (94.0-98.0) % ABG Base Excess TNP Respiration Rate Not Reportable O2 Delivery Device nasal cannula 6lpm Ventilator Type Not Reportable Vent Mode Not Reportable FiO2 Not Reportable Inspiratory Time Not Reportable PEEP Not Reportable Pressure Support Not Reportable Pressure Control Not Reportable EPAP Not Reportable IPAP Not Reportable BiPAP Not Reportable Microbiology and Other Data: Microbiology 04/01/19 14:17 Aerobic Blood Culture - Preliminary Blood Venous No Growth Day 1 Anaerobic Blood Culture - Preliminary No Growth Day 1 04/01/19 14:22 Aerobic Blood Culture - Preliminary Blood Venous No Growth Day 1 Anaerobic Blood Culture - Preliminary No Growth Day 1 Assess/Plan/Problems-Billing Ms Fisher is an 88 yo F who has a h/o COPD with chronic hypoxic respiratory failure, HTN and diastolic CHF who presented to the ER with lethargy and was found to be in hypercapnic respiratory failure. - Patient Problems (1) Acute on chronic respiratory failure with hypercapnia Current Visit: Yes Status: Acute Code(s): J96.22 - ACUTE AND CHRONIC RESPIRATORY FAILURE WITH HYPERCAPNIA SNOMED Code(s): 2664558757247 Comment: Pt with chronic hypercapnic respiratory failure secondary to advanced COPD. She was started on BiPAP on admission. BiPAP is felt to be an ineffective therapy for the patient as there no significant improvment in her pCO2 despite being on the BiPAP x1 hr (pCO2 remained >125 and her pH dropped 7.17 to 7.15). The patient is felt to benefit from treatment with a non- invasive home ventilator. The patient will be set up with [facility] through [place] [facility]. (2) COPD (chronic obstructive pulmonary disease) Current Visit: Yes Status: Acute Code(s): J44.9 - CHRONIC OBSTRUCTIVE PULMONARY DISEASE, UNSPECIFIED SNOMED Code(s): 87162786 Comment: Likely COPD exacerbation lead to hypercapnic respiratory failure. Continue prednisone- to taper over 12 days, azithromycin x2more days and nebs. Pt is sleepy at this time but answers all of my questions appropriately. She states "yes" when I ask if she wants to go home. Her daughter thinks she is just tired from not sleeping well over the last couple nights. (3) Diastolic CHF Current Visit: Yes Status: Acute Code(s): I50.30 - UNSPECIFIED DIASTOLIC ( CONGESTIVE) HEART FAILURE SNOMED Code(s): 840039347 Comment: No signs of exacerbation. Continue lasix at home dose. (4) Hypertension Current Visit: Yes Status: Acute Code(s): I10 - ESSENTIAL (PRIMARY) HYPERTENSION SNOMED Code(s): 11563762 Comment: Start amlodipine 2.5mg daily in addition to metoprolol 25mg daily. (5) DVT prophylaxis Current Visit: Yes Status: Acute Code(s): SUQ0919 - SNOMED Code(s): 221365521 Comment: lovenox (6) DNR (do not resuscitate) Current Visit: Yes Status: Acute Status and Disposition: d/c home
[2019-04-04 16:53] LABS: BUN/Creatinine Ratio 46.6 (8-20); Calcium 9.2 mg/dL (8.6-10.3); EGFR African American 73.4 (>60); EGFR Non-African American 60.6 (>60)
[2019-04-04 16:55] LABS: Potassium 5.2 mmol/L (3.5-5.0)
--- NOTE | 2019-04-04 23:04 | DS ---
CC: DELON Landon * DISCHARGE SUMMARY: DATE OF ADMISSION: 04/01/19 DATE OF DISCHARGE: 04/04/19 PRIMARY CARE PROVIDER: DELON Landon. PRINCIPAL DIAGNOSES: 1. Acute on chronic hypercapnic respiratory failure secondary to chronic obstructive pulmonary disease. 2. Chronic obstructive pulmonary disease exacerbation. SECONDARY DIAGNOSES: 1. Hypertension. 2. Hyperlipidemia. 3. Diastolic congestive heart failure. 4. Pulmonary hypertension. DISCHARGE MEDICATIONS: 1. Vitamin D 400 units p.o. daily. 2. Multivitamin 1 tab p.o. daily. 3. Aspirin 81 mg p.o. daily. 4. Metoprolol XL 25 mg p.o. daily. 5. Lasix 20 mg p.o. daily. 6. Lipitor 40 mg p.o. daily. 7. Travoprost 1 drop to both eyes at bedtime. 8. Timolol 1 drop to the left eye twice daily. 9. Prednisone 40 mg p.o. daily x3 days, then 30 mg x3 days, then 20 mg x3 days , then 10 mg x3 days and stop. 10. Amlodipine 2.5 mg p.o. daily (new). 11. Azithromycin 250 mg p.o. daily x2 doses. HOSPITAL COURSE: Ms. Fisher is an 88-year-old female with a history of advanced COPD, who is O2 dependent at home, who presented to the emergency room on 04/01/19 with increased lethargy and complaints of shortness of breath. The patient's daughter also noted significant hypoxia at home when her oxygen was not in place. The patient was placed on BiPAP due to her initial ABG revealing a pH of 7.17 with a pCO2 of greater than 125 and a pO2 of 64. One hour after being on BiPAP, the patient's ABG revealed a pH of 7.15 with a pCO2 continuing to be greater than 125 and a pO2 of 85. It is felt that this is BiPAP failure as there was no significant improvement in her ABG despite 1 hour of BiPAP therapy. After more prolonged time on the BiPAP, the patient's pH went up to 7.28 and her pCO2 was down to 105. The day after admission, the patient was markedly improved. She was alert, she was oriented and interacting at her baseline per her daughter. The patient was then transferred to the medical floor. She was treated for COPD exacerbation during the entire hospitalization with around the clock nebulizer treatments, steroids and azithromycin. The patient is felt to benefit from noninvasive positive pressure ventilation and was going to be set up for BiPAP and ultimately was felt to be a better candidate for Astral, a non-invasive ventilator. The patient qualifies for this and this will be set up for her tonight. The patient and her daughter have been instructed to utilize the noninvasive ventilator every time she sleeps to help reduce her CO2. They are in agreement with this plan. On the day of discharge, the patient is slightly more drowsy; however, her daughter states that she is essentially at her baseline level of alertness and mental status. The patient was able to go from the bed to the chair with minimal assistance which is usual. At this point, it is felt that the patient is stable for discharge to home and the patient's daughter agrees. PHYSICAL EXAMINATION: On the day of discharge, the patient is awake, but somewhat drowsy sitting in a chair in no acute distress. Cardiac exam revealed a normal S1 and S2 with a regular rate and rhythm. There was no lower extremity edema. Pulmonary exam reveals diminished breath sounds throughout, though the lungs are clear bilaterally. Abdomen: Soft, nontender, nondistended. The patient moves all four extremities symmetrically. FOLLOWUP CONCERNS: The patient is being discharged to home today, 04/04/19. ACTIVITY LEVEL: As tolerated. DIET: Regular. CONDITION ON DISCHARGE: Guarded, but stable. FOLLOWUP: The patient should follow up with Ismael Osorio on 04/09/19 at 2:45 p.m. Upon arriving home, the patient's daughter will contact [facility] to have the noninvasive ventilator set up. TIME SPENT: Thirty five minutes were spent discharging this patient. [id number]/[facility] #: [id number] JESSICA
== END 2019-04-04 18:30 | disposition home or self-care (01) | DRG 189 ==
LOC: ED 13:51 → ICU 15:10 → MED 04-02 16:46
PROVIDERS: ADMIT Hospitalist; ATTEND Hospitalist
PROC: 5A0945Z Assistance with Respiratory Ventilation, 24-96 Consecutive Hours (ICD-10-PCS; principal; 2019-04-02)
DX: J96.22 Acute and chronic respiratory failure with hypercapnia (principal); J44.1 Chronic obstructive pulmonary disease with (acute) exacerbation; I50.30 Unspecified diastolic (congestive) heart failure; I27.20 Pulmonary hypertension, unspecified; I11.0 Hypertensive heart disease with heart failure; J96.11 Chronic respiratory failure with hypoxia; Z66 Do not resuscitate; E78.5 Hyperlipidemia, unspecified; I45.10 Unspecified right bundle-branch block; Z99.81 Dependence on supplemental oxygen; Z79.82 Long term (current) use of aspirin; Z79.899 Other long term (current) drug therapy; Z82.3 Family history of stroke; Z82.5 Family history of asthma and other chronic lower respiratory diseases; Z87.891 Personal history of nicotine dependence
CPT/HCPCS: 36415; 36600; 71045; 80048; 80053; 81003; 81015; 82553; 82803; 83605; 83880; 84484; 85025; 85027; 85610; 85730; 86140; 87040; 87086; 93005; 94640; 94660; 96374; 99285; A9270-GY; J0456; J1650; J2920; J2930; J7512

== ENCOUNTER 2019-05-23 09:44 | Inpatient (IN) | payer MEDICARE, BC ==
--- NOTE | 2019-05-23 10:04 | ED ---
Shortness of Breath - HPI Summary HPI Summary: This pt is an 88 y/o female presenting to [facility] via EMS for increased SOB, chest pain, and back pain. Daughter is giving history due to patient's respiratory distress. Daughter reports pt has hx of COPD and wears 2 L of oxygen at all times. Patient is supposed to use Bipap at home but patient is noncompliant as "it terrifies her." Daughter states patient was admitted to the hospital in mid March 2019 for COPD exacerbation and was discharged from the hospital on 3L of oxygen. On 05/15/19, daughter states the pt had a fall landing on her buttocks and sustained a cut on left arm and bruise on right arm. Daughter notes that at that time patient only c/o back pain and seemed to be ok. Per daughter, patient then began worsening, with increased weakness and increased SOB. Additionally daughter reports pt also began to having chest pain in addition to the back pain. Denies fever or cough. Daughter notes for the past 1 week pt had been using 4L of oxygen. - History of Current Complaint Chief Complaint: EDShortnessOfBreath Time Seen by Provider: 05/23/19 09:58 Hx Obtained From: Family/[employer] Developer - Daughter Hx From Patient Unobtainable Due To: Other - pt in respiratory distress Onset/Duration: Lasting Days, Still Present Timing: Constant Current Severity: Severe Dyspnea At: Rest Aggravating Factors: Nothing Alleviating Factors: Nothing Associated Signs & Symptoms: Chest Pain Unrelated to Cough - and back pain Related History: Recent Trauma - on 05/15/19, fell and landed on buttocks - Allergy/Home Medications Allergies/Adverse Reactions: Allergies Allergy/AdvReac Type Severity Reaction Status Date / Time No Known Allergies Allergy Verified 07/26/15 12:40 PMH/Surg Hx/FS Hx/Imm Hx Endocrine/Hematology History: Denies: Hx Diabetes Cardiovascular History: Reports: Hx Aneurysm - Abdominal, Hx Congestive Heart Failure, Hx Hypercholesterolemia, Hx Hypertension Respiratory History: Reports: 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 Denies: Hx Asthma History: Denies: Hx Dialysis, Hx Renal Disease Musculoskeletal History: Reports: Other Musculoskeletal History - R hip fx and surgery Denies: Hx Back Problems Sensory History: Reports: Hx Glaucoma, Hx Legally Blind, Hx Macular Degeneration , Hx Vision Problem Denies: Hx Contacts or Glasses, Hx Deafness, Hx Hearing Aid Opthamlomology History: Reports: Hx Glaucoma, Hx Legally Blind, Hx Macular Degeneration, Hx Vision Problem Denies: Hx Contacts or Glasses Neurological History: Denies: Hx Dementia, Hx Seizures - Surgical History Surgery Procedure, Year, and Place: Pt reports R hip repair for fx in 2010, states placement of "a metal plate and 2 bolts" Infectious Disease History: No Infectious Disease History: Denies: Traveled Outside the [place] in Last 30 Days - Family History Known Family History: Positive: Respiratory Disease - Father with emphysema Family History: Mother with CVA - Social History Alcohol Use: None Alcohol Amount: drinks glass of wine before dinner every night Hx Substance Use: No Substance Use Type: Reports: None Hx Tobacco Use: Yes Smoking Status (MU): Former Smoker Review of Systems - ROS Summary Review of Systems Summary: ROS IS LIMITED DUE TO LEVEL 5 CAVEAT - pt in respiratory distress Negative: Fever Positive: Chest Pain Positive: Shortness Of Breath. Negative: Cough Musculoskeletal: Other - POSITIVE: back pain Positive: Weakness All Other Systems Reviewed And Are Negative: No Physical Exam - Summary Physical Exam Summary: GENERAL: Patient is an elderly and ill-looking female who is lethargic. Unable to obtain history from the patient. Patient is on 15 L of oxygen via nasal cannula. HEAD AND FACE: No signs of trauma. No ecchymosis, hematomas or skull depressions. No sinus tenderness. EYES: PERRLA, EOMI x 2, No injected conjunctiva, no nystagmus. EARS: Hearing grossly intact. Ear canals and tympanic membranes are within normal limits. MOUTH: Oropharynx within normal limits. NECK: Supple, trachea is midline, no adenopathy, no JVD, no carotid bruit, no c- spine tenderness, neck with full ROM. CHEST: Symmetric, no tenderness at palpation LUNGS: Decreased breath sounds bilaterally. CVS: Regular rate and rhythm, S1 and S2 present, no murmurs or gallops appreciated. ABDOMEN: Soft, non-tender. No signs of distention. No rebound no guarding, and no masses palpated. Bowel sounds are normal. EXTREMITIES: FROM in all major joints, no edema, no cyanosis or clubbing. NEURO: Patient is lethargic and obtunded. SKIN: Dry and warm Triage Information Reviewed: Yes Vital Signs On Initial Exam: Initial Vitals Temp Pulse Resp BP Pulse Ox 98.2 F 87 30 173/83 90 12/06/19 09:53 05/23/19 09:53 05/23/19 09:53 05/23/19 09:53 05/23/19 09:53 Vital Signs Reviewed: Yes Completion Of Physical Exam Limited Due To: Level 5 - pt in respiratory distress Procedures - Sedation Patient Received Moderate/Deep Sedation with Procedure: No Diagnostics - Vital Signs Vital Signs Temp Pulse Resp BP Pulse Ox 05/23/19 09:53 98.2 F 87 30 173/83 90 - Laboratory Result Diagrams: 05/25/19 06:00 05/25/19 06:00 Lab Statement: Any lab studies that have been ordered have been reviewed, and results considered in the medical decision making process. - Radiology Chest XR Radiology Interpretation Completed By: Radiologist Summary of Radiographic Findings: IMPRESSION: 1. Hyperinflation. 2. Pulmonary interstitial edema. 3. Bilateral pleural effusions. 4. Bibasilar atelectasis versus consolidation. Dr. Bearden has reviewed this report. - EKG 10:20 Cardiac Rate: NL - at 82 bpm EKG Rhythm: Sinus Rhythm Summary of EKG Findings: EKG at 10:20 shows normal sinus rhythm at a rate of [address] elevations. Course/Dx - Course Assessment/Plan: This pt is an 88 y/o female presenting to [facility] via EMS for increased SOB, chest pain, and back pain. Daughter is giving history due to patient's respiratory distress. Daughter reports pt has hx of COPD and wears 2 L of oxygen at all times. Patient is supposed to use Bipap at home but patient is noncompliant as "it terrifies her." Daughter states patient was admitted to the hospital in mid March 2019 for COPD exacerbation and was discharged from the hospital on 3L of oxygen. On 05/15/19, daughter states the pt had a fall landing on her buttocks and sustained a cut on left arm and bruise on right arm. Daughter notes that at that time patient only c/o back pain and seemed to be ok. Per daughter, patient then began worsening, with increased weakness and increased SOB. Additionally daughter reports pt also began having chest pain in addition to the back pain. Denies fever or cough. Daughter notes for the past 1 week pt had been using 4L of oxygen. Patient seems lethargic. ABG was done and shows Ph 7.18, pCO2 123, PO2 100, HCO3 of 34.4, O2 sat 98.1. CMP within normal limits except for chloride 95, BUN is 26, glucose 115, troponin is 0.03, CRP of 17.2, BNP 536, total protein 8.3. CO2 45, trop 0.03, Anion gap 1. Patient did not tolerated Bipap. She was placed in a Vapotherm . I discussed my physical exam and test results with Dr. Chow from the hospitalist services and she agrees to admit the patient to her services. - Diagnoses Differential Diagnosis/HQI/PQRI: Positive: Asthma, Bronchitis, CHF, COPD Exacerbation, WI, Pneumonia, Pneumothorax, Pulmonary Edema Provider Diagnoses: COPD exacerbation, Hypercapnia - Physician Notifications Discussed Care of Patient With: Deena Chow - hospitalist Time Discussed With Above Provider: 11:20 Instructed by Provider To: Admit As Inpatient Discharge ED - Sign-Out/Discharge Documenting (check all that apply): Patient Departure - Admit to [facility] [place] - Discharge Plan Condition: Stable Disposition: ADMITTED TO [facility] - Billing Disposition and Condition Condition: STABLE Disposition: Admitted to [facility] - Attestation Statements Document Initiated by Dedrickibe: Yes Documenting Scribe: Deborah Sal Provider For Whom Dedrickibe is Documenting (Include Credential): Christoph Bearden MD Scribe Attestation: I, Deborah Sal, scribed for Christoph Bearden MD on 05/25/19 at 0918. Scribe Documentation Reviewed: Yes Provider Attestation: The documentation as recorded by the Deborah chaudhry accurately reflects the service I personally performed and the decisions made by me, Christoph Bearden MD Status of Scribe Document: Viewed
[2019-05-23] MEDS ORDERED: Albuterol 2.5 MG/3 ML NEB.SOL* (0.083%) INH ONE (10:08)
[2019-05-23] MEDS ORDERED: methylPREDNISolone 125 MG* 2 ML VIAL IV ONE (10:08)
[2019-05-23] MEDS ORDERED: NS 0.9% 1000 ML** 1,000 ML IV ONE (10:08)
[2019-05-23 10:47] LABS: ABS Eosinophils 0.1 10^3/ul (0-0.6); ABS Lymphocytes 0.4 10^3/ul (1.0-4.8); ABS Monocytes 0.6 10^3/ul (0-0.8); ABS Neutrophils 3.9 10^3/ul (1.5-7.7); Eosinophil % 1.2 %; Hematocrit 39 % (35-47); Hemoglobin 12.3 g/dL (12.0-16.0); Mean Corpuscular HGB Conc 32 g/dL (31-36); Mean Corpuscular Hemoglobin 29 pg (27-31); Mean Corpuscular Volume 91 fL (80-97); Mean Platelet Volume 8.5 fL (7.4-10.4); Nucleated Red Blood Cells % 0.1; Platelet Count 155 10^3/uL (150-450); Red Blood Count 4.26 10^6 /uL (3.70-4.87); Red Cell Distribution Width 14 % (10-15)
[2019-05-23 11:06] LABS: ALT 12 U/L (7-52); AST 16 U/L (13-39); Albumin 3.4 g/dL (3.2-5.2); Albumin/Globulin Ratio 1.2 (1-3); Alkaline Phosphatase 84 U/L (34-104); BUN/Creatinine Ratio 34.7 (8-20); Blood Urea Nitrogen 26 mg/dL (6-24); C Reactive Protein 17.24 mg/L (<8.01); Calcium 9.2 mg/dL (8.6-10.3); Chloride 95 mmol/L (101-111); Creatine Kinase 33 U/L (10-223); EGFR African American 88.2 (>60); EGFR Non-African American 72.9 (>60); Globulin 2.9 g/dL (2-4); Glucose 115 mg/dL (70-100); Potassium 4.9 mmol/L (3.5-5.0); Sodium 141 mmol/L (135-145); Total Protein 6.3 g/dL (6.4-8.9)
[2019-05-23 11:09] LABS: CKMB ng/mL 3.1 ng/mL (0.6-6.3)
[2019-05-23 11:11] LABS: Anion Gap 1 mmol/L (2-11); CO2 Carbon Dioxide 45 mmol/L (22-32); Troponin I 0.03 ng/mL (<0.03)
[2019-05-23] MEDS ORDERED: Acetaminophen TAB* 325 MG PO PRN (11:31)
[2019-05-23] MEDS ORDERED: Ondansetron INJ* 2 MG/ML VIAL IV PRN (11:31)
[2019-05-23] MEDS ORDERED: Morphine INJ* 2 MG/ML 1 ML SYRINGE (TWO MG - NEW SYRINGE VERSION) IV PRN (11:31)
[2019-05-23] MEDS: Azithromycin 500 mg/250 ml NS 500 MG/250 ML BAG IVPB SCH (12:54)
--- NOTE | 2019-05-23 12:54 | HP ---
CC: DELON Landon * HISTORY AND PHYSICAL: DATE OF ADMISSION: 05/23/19 PRIMARY CARE PROVIDER: DELON Landon CHIEF COMPLAINT: Confusion. HISTORY OF PRESENT ILLNESS: Ms. 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 According to the patient's children who provide all of the history, the patient has essentially been in her usual state of health up until . She fell from a commode to the floor. She did cause a skin tear on the left medial forearm. She also has a bruise on the left anterior leg. She was initially complaining of back discomfort following this for a couple of days, however, that seemed to improve and then her breathing deteriorated. The patient has a known history of hypercarbic respiratory failure requiring BiPAP in the hospital. In fact, she has an Astral at home, though she does not use this regularly. Over the last couple of days, the patient was noted to become more confused than her baseline. She was not making any sense. Her daughter recognized that this was likely a sign of hypercarbia and she brought her to the emergency room to be evaluated. PAST MEDICAL HISTORY: 1. 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 2. Hypertension. 3. Hyperlipidemia. 4. Diastolic congestive heart failure. 5. Pulmonary hypertension. PAST SURGICAL HISTORY: Left hip ORIF. MEDICATIONS: 1. Multivitamin 1 tab p.o. daily. 2. Vitamin D 400 units p.o. daily. 3. Aspirin 81 mg p.o. daily. 4. Timolol 1 drop to left eye b.i.d. 5. Metoprolol XL 25 mg p.o. daily. 6. Lasix 20 mg p.o. daily. 7. Lipitor 40 mg p.o. at bedtime. 8. Travoprost 1 drop to both eyes at bedtime. ALLERGIES: No known drug allergies. FAMILY HISTORY: Mom of CVA. Dad had emphysema. SOCIAL HISTORY: The patient is a former smoker, quitting in 2010. She smoked for most of her life. She does drink a small glass of wine before dinner. 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 She is . She had 6 children, 2 of which are . The patient's daughter states that there is no formal health care proxy as all of the patient's children would like to make the decisions together. REVIEW OF SYSTEMS: Unobtainable from the patient. PHYSICAL EXAMINATION GENERAL: The patient is a well-developed elderly female seen sitting up in the stretcher, drowsy but arousable, in no acute distress. VITAL SIGNS: Blood pressure 193/85, pulse 92, respirations 21, temp 98.2, O2 sat 100% on 40 L, 100% FiO2 via Vapotherm. HEENT: Pupils are round. Extraocular muscles are intact. Oropharynx is clear and moist. There is no submandibular, cervical, or supraclavicular adenopathy. PULMONARY: Breath sounds are diminished throughout, but much worse at the bases. Her lungs are otherwise clear. CARDIAC: Normal S1 and S2. Heart rate is tachycardic. There is a 3/6 systolic murmur. There is trace to 1+ ankle edema bilaterally. ABDOMEN: Bowel sounds present. Abdomen is soft, nontender, and nondistended. MUSCULOSKELETAL: There is no cyanosis or clubbing of the digits. There is full active range of motion of all 4 extremities. NEUROLOGIC: Exam is deferred as the patient is quite drowsy. PSYCH: Unable to assess the patient's orientation due to her being drowsy. SKIN: There are no rashes. She does have bruises noted on the left arm and a small quarter sized bruise on the left anterior mason. There are 2 small circular skin tears noted to the medial left forearm. There is slight surrounding erythema. DIAGNOSTIC STUDIES/LAB DATA: Labs: WBC 5.0, hemoglobin 12.3, hematocrit 39, platelets 155. PTT 32.4. Sodium 141, potassium 4.9, chloride 95, CO2 of 45, BUN 26, creatinine 0.75, glucose 115, lactic acid 0.7, calcium 9.2. Bilirubin 0.4, AST 16, ALT 12, alk phos 84. CPK 33, CK-MB 3.1, troponin 0.03. CRP 17.24. BNP 536. Albumin 3.4. EKG reveals normal sinus rhythm with probable left atrial enlargement with a right bundle-branch block. Chest x-ray revealed hyperinflation, pulmonary interstitial edema, bilateral pleural effusions, and bibasilar atelectasis versus consolidation. ASSESSMENT AND PLAN: Ms. Fisher is an 88-year-old female with a history of probable end-stage chronic obstructive pulmonary disease that is O2 dependent, who presents to the emergency room with increasing confusion and is found to be in acute on chronic hypercarbic respiratory failure. 1. Acute on chronic hypercarbic respiratory failure secondary to probable chronic obstructive pulmonary disease exacerbation. At this point, the patient has been started on initially Vapotherm in the emergency room due to the concerns that she would not tolerate the BiPAP; however, upon my conversation with the patient's son, he states that she can tolerate the BiPAP, and therefore , this has been ordered and she has now been started on this. Followup ABG will be obtained this afternoon at 1430. In terms of probable chronic obstructive pulmonary disease exacerbation leading to the acute respiratory decompensation, we will treat with Solu-Medrol 40 mg IV q.12 hours, standing nebs, and azithromycin. We will monitor for improvement in her ABG. During her last hospitalization, the last checked pCO2 was 105. Historically, her pCO2 has been quite high dating back to at least 2016. Additionally, the patient's family requests palliative care consultation and this has been ordered. 2. Elevated troponin. The patient has a mildly elevated troponin of 0.03. This appears to be her baseline and is likely secondary to demand ischemia from her acute on chronic respiratory failure. No further workup will be undertaken for this. 3. Diastolic congestive heart failure. At this time, the patient appears to be relatively euvolemic. While her BNP is elevated, this appears to be her baseline. We will continue Lasix 20 mg p.o. daily. 4. Hyperlipidemia. Continue Lipitor 40 mg p.o. at bedtime. 5. Hypertension. Continue metoprolol XL 25 mg p.o. daily. 6. Glaucoma. Continue travoprost and timolol eye drops. 7. DVT prophylaxis. According to the Adult Thrombosis Prophylaxis Risk Factor Assessment Guide, the patient has a total risk factor score of 4 making her high risk. Heparin 5000 units subcutaneous q.8 hours will be utilized as DVT prophylaxis. 8. Code status is DNR/DNI. TIME SPENT: Sixty five minutes was spent admitting this patient. [id number]/CPS #: [id number] MTDD
--- NOTE | 2019-05-23 14:46 | CONSULT ---
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 PMH is significant for COPD on 3-4 liters at home and has an astral machine which she doesn't use, HTN, hyperlipidemia, diastolic CHF and pulmonary HTN. PSHx pt is with 6 children(2 are ), ex smoker, occ glass of wine, no drug use lives with daughter. Studies CXR-hyperinflation, pulmonary interstitial edema, bilat effusion, atelectasis vs consolidation, EKG-NSR, RBBB , H/H 12.3/39, BUN/Cr 26/.75, egfr 72.9, troponin .03, alb 3.4 and BNP 536. Pt admitted to ICU with acute on chronic hypercapnic respiratory failure and COPD exacerbation. Pt was recently hospitalized 04/01- for same reason. All history is from pt, family and medical record. Lab Values: Abnormal Lab Results 05/23/19 05/23/19 05/23/19 10:17 10:34 10:34 WBC RBC Hgb Hct MCV MCH MCHC RDW Plt Count MPV Neut % (Auto) Lymph % (Auto) Graham % (Auto) Eos % (Auto) Baso % (Auto) Absolute Neuts (auto) Absolute Lymphs (auto) Absolute Monos (auto) Absolute Eos (auto) Absolute Basos (auto) Absolute Nucleated RBC Nucleated RBC % APTT Patient Temperature Not Reportable ABG pH 7.18 L* ABG pH (Temp Correct) Not Reportable ABG pCO2 123 H* ABG pCO2 (Temp Corrct Not Reportable ABG pO2 100 ABG pO2 (Temp Correct Not Reportable ABG HCO3 34.4 H ABG O2 Saturation 98.1 H ABG Base Excess 12.2 H Respiration Rate Not Reportable O2 Delivery Device 15lpm oxymsk Ventilator Type Not Reportable Vent Mode Not Reportable FiO2 Not Reportable Inspiratory Time Not Reportable PEEP Not Reportable Pressure Support Not Reportable Pressure Control Not Reportable EPAP Not Reportable IPAP Not Reportable BiPAP Not Reportable Sodium 141 Potassium 4.9 Chloride 95 L Carbon Dioxide 45 H* Anion Gap 1 L BUN 26 H Creatinine 0.75 Est GFR ( Amer) 88.2 Est GFR (Non-Af Amer) 72.9 BUN/Creatinine Ratio 34.7 H Glucose 115 H Lactic Acid Calcium 9.2 Total Bilirubin 0.40 AST 16 ALT 12 Alkaline Phosphatase 84 Total Creatine Kinase 33 CK-MB (CK-2) 3.1 Troponin I 0.03 H* C-Reactive Protein 17.24 H B-Natriuretic Peptide 536 H Total Protein 6.3 L Albumin 3.4 Globulin 2.9 Albumin/Globulin Ratio 1.2 05/23/19 05/23/19 05/23/19 10:35 10:35 10:35 WBC 5.0 RBC 4.26 Hgb 12.3 Hct 39 MCV 91 MCH 29 MCHC 32 RDW 14 Plt Count 155 MPV 8.5 Neut % (Auto) 77.9 Lymph % (Auto) 9.0 Graham % (Auto) 11.7 Eos % (Auto) 1.2 Baso % (Auto) 0.2 Absolute Neuts (auto) 3.9 Absolute Lymphs (auto) 0.4 L Absolute Monos (auto) 0.6 Absolute Eos (auto) 0.1 Absolute Basos (auto) 0.0 Absolute Nucleated RBC 0.0 Nucleated RBC % 0.1 APTT 32.4 Patient Temperature ABG pH ABG pH (Temp Correct) ABG pCO2 ABG pCO2 (Temp Corrct ABG pO2 ABG pO2 (Temp Correct ABG HCO3 ABG O2 Saturation ABG Base Excess Respiration Rate O2 Delivery Device Ventilator Type Vent Mode FiO2 Inspiratory Time PEEP Pressure Support Pressure Control EPAP IPAP BiPAP Sodium Potassium Chloride Carbon Dioxide Anion Gap BUN Creatinine Est GFR ( Amer) Est GFR (Non-Af Amer) BUN/Creatinine Ratio Glucose Lactic Acid 0.7 Calcium Total Bilirubin AST ALT Alkaline Phosphatase Total Creatine Kinase CK-MB (CK-2) Troponin I C-Reactive Protein B-Natriuretic Peptide Total Protein Albumin Globulin Albumin/Globulin Ratio Laboratory Last Values WBC 5.0 10^3/uL (3.5-10.8) 05/23/19 10:35 RBC 4.26 10^6 /uL (3.70-4.87) 05/23/19 10:35 Hgb 12.3 g/dL (12.0-16.0) 05/23/19 10:35 Hct 39 % (35-47) 05/23/19 10:35 MCV 91 fL (80-97) 05/23/19 10:35 MCH 29 pg (27-31) 05/23/19 10:35 MCHC 32 g/dL (31-36) 05/23/19 10:35 RDW 14 % (10-15) 05/23/19 10:35 Plt Count 155 10^3/uL (150-450) 05/23/19 10:35 MPV 8.5 fL (7.4-10.4) 05/23/19 10:35 Neut % (Auto) 77.9 % 05/23/19 10:35 Lymph % (Auto) 9.0 % 05/23/19 10:35 Graham % (Auto) 11.7 % 05/23/19 10:35 Eos % (Auto) 1.2 % 05/23/19 10:35 Baso % (Auto) 0.2 % 05/23/19 10:35 Absolute Neuts (auto) 3.9 10^3/ul (1.5-7.7) 05/23/19 10:35 Absolute Lymphs (auto) 0.4 10^3/ul (1.0-4.8) L 05/23/19 10:35 Absolute Monos (auto) 0.6 10^3/ul (0-0.8) 05/23/19 10:35 Absolute Eos (auto) 0.1 10^3/ul (0-0.6) 05/23/19 10:35 Absolute Basos (auto) 0.0 10^3/ul (0-0.2) 05/23/19 10:35 Absolute Nucleated RBC 0.0 10^3/ul 05/23/19 10:35 Nucleated RBC % 0.1 05/23/19 10:35 APTT 32.4 seconds (26.0-38.0) 05/23/19 10:35 Patient Temperature Not Reportable 05/23/19 10:17 ABG pH 7.18 (7.35-7.45) L* 05/23/19 10:17 ABG pH (Temp Correct) Not Reportable 05/23/19 10:17 ABG pCO2 123 mmHg (35-45) H* 05/23/19 10:17 ABG pCO2 (Temp Corrct Not Reportable 05/23/19 10:17 ABG pO2 100 mmHg (80-100) 05/23/19 10:17 ABG pO2 (Temp Correct Not Reportable 05/23/19 10:17 ABG HCO3 34.4 mmol/L (19-31) H 05/23/19 10:17 ABG O2 Saturation 98.1 % (94.0-98.0) H 05/23/19 10:17 ABG Base Excess 12.2 mmol/L (-2.0-2.0) H 05/23/19 10:17 Respiration Rate Not Reportable 05/23/19 10:17 O2 Delivery Device 15lpm oxymsk 05/23/19 10:17 Ventilator Type Not Reportable 05/23/19 10:17 Vent Mode Not Reportable 05/23/19 10:17 FiO2 Not Reportable 05/23/19 10:17 Inspiratory Time Not Reportable 05/23/19 10:17 PEEP Not Reportable 05/23/19 10:17 Pressure Support Not Reportable 05/23/19 10:17 Pressure Control Not Reportable 05/23/19 10:17 EPAP Not Reportable 05/23/19 10:17 IPAP Not Reportable 05/23/19 10:17 BiPAP Not Reportable 05/23/19 10:17 Sodium 141 mmol/L (135-145) 05/23/19 10:34 Potassium 4.9 mmol/L (3.5-5.0) 05/23/19 10:34 Chloride 95 mmol/L (101-111) L 05/23/19 10:34 Carbon Dioxide 45 mmol/L (22-32) H* 05/23/19 10:34 Anion Gap 1 mmol/L (2-11) L 05/23/19 10:34 BUN 26 mg/dL (6-24) H 05/23/19 10:34 Creatinine 0.75 mg/dL (0.51-0.95) 05/23/19 10:34 Est GFR ( Amer) 88.2 (>60) 05/23/19 10:34 Est GFR (Non-Af Amer) 72.9 (>60) 05/23/19 10:34 BUN/Creatinine Ratio 34.7 (8-20) H 05/23/19 10:34 Glucose 115 mg/dL (70-100) H 05/23/19 10:34 Lactic Acid 0.7 mmol/L (0.5-2.0) 05/23/19 10:35 Calcium 9.2 mg/dL (8.6-10.3) 05/23/19 10:34 Total Bilirubin 0.40 mg/dL (0.2-1.0) 05/23/19 10:34 AST 16 U/L (13-39) 05/23/19 10:34 ALT 12 U/L (7-52) 05/23/19 10:34 Alkaline Phosphatase 84 U/L (34-104) 05/23/19 10:34 Total Creatine Kinase 33 U/L (10-223) 05/23/19 10:34 CK-MB (CK-2) 3.1 ng/mL (0.6-6.3) 05/23/19 10:34 Troponin I 0.03 ng/mL (<0.03) H* 05/23/19 10:34 C-Reactive Protein 17.24 mg/L (<8.01) H 05/23/19 10:34 B-Natriuretic Peptide 536 pg/mL (<=100) H 05/23/19 10:34 Total Protein 6.3 g/dL (6.4-8.9) L 05/23/19 10:34 Albumin 3.4 g/dL (3.2-5.2) 05/23/19 10:34 Globulin 2.9 g/dL (2-4) 05/23/19 10:34 Albumin/Globulin Ratio 1.2 (1-3) 05/23/19 10:34 - Objective Active Medications: Acetaminophen (Tylenol Tab*) 650 mg PO Q4H PRN PRN Reason: PAIN - MILD Albuterol (Ventolin 2.5 Mg/3 Ml Neb.Kitty*) 2.5 mg INH [id number] AWAKE [facility] Aspirin (Aspirin Ec Tab*) 81 mg PO DAILY [facility] Atorvastatin Calcium (Lipitor*) 40 mg PO QPM [facility] Cholecalciferol (Vitamin D Tab*) 400 unit PO DAILY [facility] Furosemide (Lasix Tab*) 20 mg PO DAILY [facility] Heparin Sodium (Porcine) (Heparin Vial(*)) 5,000 units SUBCUT Q8HR [facility] Azithromycin (Zithromax 500 Mg/250 Ml) 500 mg in 250 mls @ 250 mls/hr IVPB Q24H [facility] Last Admin: 05/23/19 12:54 Dose: 250 mls/hr Latanoprost (Xalatan 0.005%*) 1 drop BOTH EYES BEDTIME [facility] Methylprednisolone Sodium Succinate (Solu-Medrol 40 Mg) 40 mg IV Q12H [facility] Metoprolol Succinate (Toprol Xl Tab*) 25 mg PO DAILY [facility] Morphine Sulfate (Morphine Inj (Syringe))*) 1 mg IV Q4H PRN PRN Reason: air hunger Multivitamins/Minerals (Theragran/Minerals Tab*) 1 tab PO DAILY [facility] Ondansetron HCl (Zofran Inj*) 4 mg IV Q6H PRN PRN Reason: NAUSEA Timolol Maleate (Timoptic 0.5% Opth*) 1 drop LEFT EYE BID [facility] Vital Signs: Vital Signs: Temp Pulse Resp BP Pulse Ox 99.5 F 84 23 110/90 97 05/23/19 12:40 05/23/19 14:31 05/23/19 14:31 05/23/19 14:31 05/23/19 14:31 Patient Weight: Weight 72.575 kg Intake and Output: Intake & Output 05/21/19 05/22/19 05/23/19 05/24/19 06:59 06:59 06:59 06:59 Intake Total 1000 Output Total 0 Balance 1000 Weight 72.575 kg Intake: IV Fluids 1000 Output: Urine 0 ADLs: Meal Record Start: 05/23/19 11: 57 Freq: 09,13,18 Status: Active Protocol: Created 05/23/19 11:57 System (Rec: 05/23/19 11:57 System [id number]) Document 05/23/19 13:00 [id number] (Rec: 05/23/19 13:19 [id number]) Intake and Output Start: 05/23/19 10: 03 Freq: Status: Active Protocol: Created 05/23/19 10:03 System (Rec: 05/23/19 10:03 System [id number]) Intake and Output Start: 05/23/19 11: 57 Freq: Q1HR Status: Active Protocol: Created 05/23/19 11:57 System (Rec: 05/23/19 11:57 System [id number]) Document 05/23/19 12:00 [id number] (Rec: 05/23/19 13:19 [id number] ICU-C06) Document 05/23/19 13:00 [id number] (Rec: 05/23/19 13:50 [id number] ICU-C06) Document 05/23/19 14:00 [id number] (Rec: 05/23/19 14:38 [id number] ICU-C06) Ears/Nose/Mouth/Throat: NL Teeth, Lips, Gums, Clear Oropharnyx Neck: NL Appearance and Movements; NL JVP Cardiovascular: NL Sounds; No Murmurs; No JVD Respiratory: Symmetrical Chest Expansion and Respiratory Effort Abdominal: NL Sounds; No Tenderness; No Distention Neurological: Alert and Oriented x 3 - Assessment Assessment: 88yo female with acute on chronic hypercapnic respiratory failure and COPD exacerbation - Plan Consult Plan (MU): Palliative Plan: Spoke with pt's daughter about goals of care. Pt was on hospice 2 years ago but was discharged and is currently living with daughter and daughter's family. Family had requested a palliative consult to clarify goals of care. Pt has a MOLST DNR/DNI in the computer family forgot pink form. If pt improves she will be transferred to the floor and discharged when stable with either home hospice or VNS with [facility]. If pt doesn't improve will have to consider terminal wean. Daughter Ngozi wants to discuss this information with the rest of her siblings. Daughter is getting fatigued caring for her mother and pt has mentioned several times that she is tired of being ill. pt lives in bedroom and can ambulate to bathroom, watches TV and does crossword puzzles. Please add bowel regime. Hospice eligibility would be based on end stage COPD, pulmonary HTN and diastolic CHF. KPS 40%, PPS 50% - Time On Unit Date of Evaluation: 05/23/19 Hospice Consult Time in: 13:30 Hospice Consult Time Out: 14:30 Hospice Consult Time Total: 60 > 50% of Time Spend In Counseling or Coordinating Care: Yes
[2019-05-23] MEDS: Albuterol 2.5 MG/3 ML NEB.SOL* (0.083%) INH SCH ×3 (15:00→23:38)
[2019-05-23] MEDS: Atorvastatin* 40 MG TAB PO SCH (19:40)
[2019-05-23] MEDS: Timolol 0.5% OPTH.SOL* BTL LEFT EYE SCH (20:02)
[2019-05-23] MEDS: Latanoprost 0.005%* 2.5 ml BTL BOTH EYES SCH (20:02)
[2019-05-23] MEDS: Nystatin CREAM* 15 GM TUBE TOPICAL SCH (21:00)
[2019-05-23] MEDS: Heparin VIAL(*) 5000 UNITS/ML VIAL (FIVE THOUSAND) SUBCUT SCH ×2 (21:00→21:13)
[2019-05-23] MEDS: methylPREDNISolone SOD 40 MG* 1 ML VIAL IV SCH (21:00)
[2019-05-23 21:50] LABS: Troponin I 0.03 ng/mL (<0.03)
[2019-05-23] MEDS ORDERED: Melatonin 3 MG TAB PO PRN (22:05)
[2019-05-24] MEDS: Albuterol 2.5 MG/3 ML NEB.SOL* (0.083%) INH SCH ×6 (03:49→23:26)
[2019-05-24 04:25] LABS: ABS Lymphocytes 0.1 10^3/ul (1.0-4.8); ABS Monocytes 0.1 10^3/ul (0-0.8); ABS Neutrophils 2.4 10^3/ul (1.5-7.7); Hematocrit 34 % (35-47); Hemoglobin 10.7 g/dL (12.0-16.0); Lymphocyte % 4.3 %; Mean Corpuscular HGB Conc 32 g/dL (31-36); Mean Corpuscular Hemoglobin 29 pg (27-31); Mean Corpuscular Volume 90 fL (80-97); Mean Platelet Volume 8.6 fL (7.4-10.4); Nucleated Red Blood Cells % 0.3; Platelet Count 142 10^3/uL (150-450); Red Blood Count 3.75 10^6 /uL (3.70-4.87); Red Cell Distribution Width 14 % (10-15); White Blood Count 2.7 10^3/uL (3.5-10.8)
[2019-05-24 04:43] LABS: BUN/Creatinine Ratio 36.7 (8-20); Blood Urea Nitrogen 29 mg/dL (6-24); Calcium 8.7 mg/dL (8.6-10.3); Chloride 98 mmol/L (101-111); EGFR African American 83.1 (>60); EGFR Non-African American 68.7 (>60); Glucose 135 mg/dL (70-100); Sodium 140 mmol/L (135-145)
[2019-05-24 04:44] LABS: Troponin I 0.02 ng/mL (<0.03)
[2019-05-24 04:49] LABS: CO2 Carbon Dioxide 42 mmol/L (22-32); Potassium 5.3 mmol/L (3.5-5.0)
[2019-05-24] MEDS: Heparin VIAL(*) 5000 UNITS/ML VIAL (FIVE THOUSAND) SUBCUT SCH ×3 (05:14→21:39)
[2019-05-24] MEDS: Metoprolol Succinate XL TAB* 25 MG PO SCH (08:50)
[2019-05-24] MEDS: Aspirin EC TAB* 81 MG TAB.EC PO SCH (08:50)
[2019-05-24] MEDS: amLODIPine TAB* 5 MG PO SCH (08:50)
[2019-05-24] MEDS: Cholecalciferol TAB* 400 UNIT PO SCH (08:50)
[2019-05-24] MEDS: methylPREDNISolone SOD 40 MG* 1 ML VIAL IV SCH ×2 (08:50→21:39)
[2019-05-24] MEDS: Multivitamins/Minerals TAB PO SCH (08:50)
[2019-05-24] MEDS: Furosemide TAB* 20 MG PO SCH (08:50)
[2019-05-24] MEDS: Nystatin CREAM* 15 GM TUBE TOPICAL SCH ×3 (08:51→21:39)
--- NOTE | 2019-05-24 08:59 | PN ---
Subjective Date of Service: 05/24/19 Interval History: Pt spent night ion BIPA. Feels well, communication limited by BIPAP. Denies pain or SOB. BIPAP is at 35% Fi02 Objective Active Medications: Acetaminophen (Tylenol Tab*) 650 mg PO Q4H PRN PRN Reason: PAIN - MILD Albuterol (Ventolin 2.5 Mg/3 Ml Neb.Kitty*) 2.5 mg INH [id number] AWAKE [facility] Last Admin: 05/24/19 06:59 Dose: 2.5 mg Amlodipine Besylate (Norvasc Tab*) 5 mg PO DAILY [facility] Last Admin: 05/24/19 08:50 Dose: 5 mg Aspirin (Aspirin Ec Tab*) 81 mg PO DAILY [facility] Last Admin: 05/24/19 08:50 Dose: 81 mg Atorvastatin Calcium (Lipitor*) 40 mg PO QPM [facility] Last Admin: 05/23/19 19:40 Dose: 40 mg Cholecalciferol (Vitamin D Tab*) 400 unit PO DAILY [facility] Last Admin: 05/24/19 08:50 Dose: 400 unit Furosemide (Lasix Tab*) 20 mg PO DAILY [facility] Last Admin: 05/24/19 08:50 Dose: 20 mg Heparin Sodium (Porcine) (Heparin Vial(*)) 5,000 units SUBCUT Q8HR [facility] Last Admin: 05/24/19 05:14 Dose: 5,000 units Azithromycin (Zithromax 500 Mg/250 Ml) 500 mg in 250 mls @ 250 mls/hr IVPB Q24H [facility] Last Admin: 05/23/19 12:54 Dose: 250 mls/hr Latanoprost (Xalatan 0.005%*) 1 drop BOTH EYES BEDTIME [facility] Last Admin: 05/23/19 20:02 Dose: Not Given Melatonin (Melatonin) 3 mg PO BEDTIME PRN PRN Reason: INSOMNIA Methylprednisolone Sodium Succinate (Solu-Medrol 40 Mg) 40 mg IV Q12H [facility] Last Admin: 05/24/19 08:50 Dose: 40 mg Metoprolol Succinate (Toprol Xl Tab*) 25 mg PO DAILY [facility] Last Admin: 05/24/19 08:50 Dose: 25 mg Morphine Sulfate (Morphine Inj (Syringe))*) 1 mg IV Q4H PRN PRN Reason: air hunger Multivitamins/Minerals (Theragran/Minerals Tab*) 1 tab PO DAILY [facility] Last Admin: 05/24/19 08:50 Dose: 1 tab Nystatin (Nystatin Cream*) 1 applic TOPICAL TID [facility] Last Admin: 05/24/19 08:51 Dose: 1 applic Ondansetron HCl (Zofran Inj*) 4 mg IV Q6H PRN PRN Reason: NAUSEA Timolol Maleate (Timoptic 0.5% Opth*) 1 drop LEFT EYE BID [facility] Last Admin: 05/23/19 20:02 Dose: Not Given Vital Signs - 8 hr 05/24/19 05/24/19 05/24/19 01:00 02:00 02:01 Temperature Pulse Rate 86 82 83 Respiratory 19 23 31 Rate Blood Pressure 153/117 151/106 (mmHg) O2 Sat by Pulse 95 95 95 Oximetry 05/24/19 05/24/19 05/24/19 03:00 03:30 04:00 Temperature 98.3 F Pulse Rate 86 75 Respiratory 20 25 Rate Blood Pressure 157/81 (mmHg) O2 Sat by Pulse 93 93 Oximetry 05/24/19 05/24/19 05/24/19 04:01 05:00 05:01 Temperature Pulse Rate 75 83 78 Respiratory 20 21 22 Rate Blood Pressure 147/71 176/88 (mmHg) O2 Sat by Pulse 94 95 94 Oximetry 05/24/19 05/24/19 05/24/19 05:04 06:00 06:01 Temperature Pulse Rate 83 78 78 Respiratory 25 22 24 Rate Blood Pressure 171/79 173/74 (mmHg) O2 Sat by Pulse 95 97 96 Oximetry 05/24/19 05/24/19 07:00 07:01 Temperature Pulse Rate 81 77 Respiratory 18 22 Rate Blood Pressure 200/86 193/81 (mmHg) O2 Sat by Pulse 97 97 Oximetry Oxygen Devices in Use Now: BiPAP Appearance: 88 yo F in nAD, AAOx2 Eyes: No Scleral Icterus, PERRLA Ears/Nose/Mouth/Throat: NL Teeth, Lips, Gums, Mucous Membranes Moist Neck: NL Appearance and Movements; NL JVP, Trachea Midline Respiratory: Symmetrical Chest Expansion and Respiratory Effort, - - distant breath sounds b/l -grossly clear Cardiovascular: NL Sounds; No Murmurs; No JVD, RRR Abdominal: NL Sounds; No Tenderness; No Distention Lymphatic: No Cervical Adenopathy Extremities: No Clubbing, Cyanosis, - - trace pedal edema b/l Skin: No Nodules or Sclerosis, - - venous stasis skin changes b/l distal LE's Neurological: NL Muscle Strength and Tone Result Diagrams: 05/24/19 04:12 05/24/19 04:12 Microbiology and Other Data: Microbiology 05/23/19 12:59 Nasal Screen MRSA (PCR) - Final Nasal Mrsa Not Detected Assess/Plan/Problems-Billing Assessment: Ms Fisher is an 88 yo F who has a h/o COPD with chronic hypoxic respiratory failure, HTN and diastolic CHF who presented to the ER with lethargy and was found to be in hypercapnic respiratory failure. - Patient Problems (1) Acute on chronic respiratory failure with hypercapnia Comment: Pt with chronic hypercapnic respiratory failure secondary to advanced COPD. She was started on BiPAP on admission. Today, comfortable on BIPAP, will try to wean off to [place] (2) COPD (chronic obstructive pulmonary disease) Comment: Likely COPD exacerbation lead to hypercapnic respiratory failure. Continue Solu Medrol and azithromycin . Mild leukopenia noted-cont to monitor (3) Diastolic CHF Comment: No signs of exacerbation. Continue lasix at home dose. (4) Hypertension Comment: Start amlodipine 5mg daily in addition to home metoprolol (5) DNR (do not resuscitate) Comment: DNR/DNI-appreciate palliative care consult. Pt is a candidate for [facility] or hospice at d/c (6) DVT prophylaxis Comment: HS
[2019-05-24] MEDS: Timolol 0.5% OPTH.SOL* BTL LEFT EYE SCH ×2 (09:13→21:39)
[2019-05-24] MEDS: Azithromycin 500 mg/250 ml NS 500 MG/250 ML BAG IVPB SCH (12:42)
[2019-05-24] MEDS ORDERED: Magnesium Hydroxide LIQ* 30 ML UDC PO PRN (18:22)
[2019-05-24] MEDS ORDERED: Polyethylene Glycol 3350* 17 GM PACKET PO PRN (18:22)
[2019-05-24] MEDS ORDERED: Senna TAB 8.6 mg* TAB PO PRN (18:22)
[2019-05-24] MEDS ORDERED: Sodium Phosphate ADULT ENEMA* 118 ml bottle PR PRN (18:45)
[2019-05-24] MEDS ORDERED: Sodium Phosphate ADULT ENEMA* 118 ml bottle PR ONE (18:45)
[2019-05-24] MEDS: Atorvastatin* 40 MG TAB PO SCH (18:46)
[2019-05-24] MEDS: Magnesium Hydroxide LIQ* 30 ML UDC PO SCH (21:39)
[2019-05-24] MEDS: Docusate CAP* 100 MG PO SCH (21:39)
[2019-05-24] MEDS: Latanoprost 0.005%* 2.5 ml BTL BOTH EYES SCH (21:39)
[2019-05-25] MEDS: Albuterol 2.5 MG/3 ML NEB.SOL* (0.083%) INH SCH ×4 (03:25→19:46)
[2019-05-25] MEDS: Heparin VIAL(*) 5000 UNITS/ML VIAL (FIVE THOUSAND) SUBCUT SCH ×3 (05:55→20:31)
[2019-05-25 06:28] LABS: ABS Lymphocytes 0.2 10^3/ul (1.0-4.8); ABS Monocytes 0.2 10^3/ul (0-0.8); ABS Neutrophils 6.1 10^3/ul (1.5-7.7); Eosinophil % 0.1 %; Hematocrit 34 % (35-47); Hemoglobin 10.7 g/dL (12.0-16.0); Lymphocyte % 2.9 %; Mean Corpuscular HGB Conc 32 g/dL (31-36); Mean Corpuscular Hemoglobin 29 pg (27-31); Mean Corpuscular Volume 90 fL (80-97); Mean Platelet Volume 8.7 fL (7.4-10.4); Nucleated Red Blood Cells % 0.1; Platelet Count 140 10^3/uL (150-450); Red Blood Count 3.72 10^6 /uL (3.70-4.87); Red Cell Distribution Width 14 % (10-15); White Blood Count 6.5 10^3/uL (3.5-10.8)
[2019-05-25 06:40] LABS: BUN/Creatinine Ratio 44.6 (8-20); Blood Urea Nitrogen 33 mg/dL (6-24); Calcium 8.6 mg/dL (8.6-10.3); Chloride 96 mmol/L (101-111); EGFR African American 89.6 (>60); EGFR Non-African American 74.1 (>60); Glucose 126 mg/dL (70-100); Sodium 140 mmol/L (135-145)
[2019-05-25 06:42] LABS: CO2 Carbon Dioxide 44 mmol/L (22-32); Potassium 5.5 mmol/L (3.5-5.0)
--- NOTE | 2019-05-25 09:10 | PN ---
Subjective Date of Service: 05/25/19 Interval History: Pt slept 6 hrs on BIPAP. Today feels well, awake, no new complaints. Still on 10 L 02 Objective Active Medications: Acetaminophen (Tylenol Tab*) 650 mg PO Q4H PRN PRN Reason: PAIN - MILD Albuterol (Ventolin 2.5 Mg/3 Ml Neb.Kitty*) 2.5 mg INH [id number] AWAKE [facility] Last Admin: 05/25/19 07:12 Dose: 2.5 mg Amlodipine Besylate (Norvasc Tab*) 5 mg PO DAILY [facility] Last Admin: 05/24/19 08:50 Dose: 5 mg Aspirin (Aspirin Ec Tab*) 81 mg PO DAILY [facility] Last Admin: 05/24/19 08:50 Dose: 81 mg Atorvastatin Calcium (Lipitor*) 40 mg PO QPM [facility] Last Admin: 05/24/19 18:46 Dose: 40 mg Cholecalciferol (Vitamin D Tab*) 400 unit PO DAILY [facility] Last Admin: 05/24/19 08:50 Dose: 400 unit Docusate Sodium (Colace Cap*) 100 mg PO BID [facility] Last Admin: 05/24/19 21:39 Dose: 100 mg Furosemide (Lasix Tab*) 20 mg PO DAILY [facility] Last Admin: 05/24/19 08:50 Dose: 20 mg Heparin Sodium (Porcine) (Heparin Vial(*)) 5,000 units SUBCUT Q8HR [facility] Last Admin: 05/25/19 05:55 Dose: 5,000 units Azithromycin (Zithromax 500 Mg/250 Ml) 500 mg in 250 mls @ 250 mls/hr IVPB Q24H [facility] Last Admin: 05/24/19 12:42 Dose: 250 mls/hr Latanoprost (Xalatan 0.005%*) 1 drop BOTH EYES BEDTIME [facility] Last Admin: 05/24/19 21:39 Dose: 1 drop Magnesium Hydroxide (Milk Of Magnesia Liq*) 30 ml PO BID [facility] Last Admin: 05/24/19 21:39 Dose: 30 ml Magnesium Hydroxide (Milk Of Magnesia Liq*) 30 ml PO BID PRN PRN Reason: CONSTIPATION Melatonin (Melatonin) 3 mg PO BEDTIME PRN PRN Reason: INSOMNIA Methylprednisolone Sodium Succinate (Solu-Medrol 40 Mg) 40 mg IV Q12H [facility] Last Admin: 05/24/19 21:39 Dose: 40 mg Metoprolol Succinate (Toprol Xl Tab*) 25 mg PO DAILY [facility] Last Admin: 05/24/19 08:50 Dose: 25 mg Morphine Sulfate (Morphine Inj (Syringe))*) 1 mg IV Q4H PRN PRN Reason: air hunger Multivitamins/Minerals (Theragran/Minerals Tab*) 1 tab PO DAILY [facility] Last Admin: 05/24/19 08:50 Dose: 1 tab Nystatin (Nystatin Cream*) 1 applic TOPICAL TID [facility] Last Admin: 05/24/19 21:39 Dose: 1 applic Ondansetron HCl (Zofran Inj*) 4 mg IV Q6H PRN PRN Reason: NAUSEA Patiromer (Veltassa Powder*) 8.4 gm PO DAILY [facility] Polyethylene Glycol/Electrolytes (Miralax*) 17 gm PO DAILY PRN PRN Reason: CONSTIPATION Senna (Senokot 8.6 Mg Tab*) 1 tab PO BEDTIME PRN PRN Reason: CONSTIPATION Sodium Biphosphate/Sodium Phosphate (Fleet Enema*) 1 bottle [place] DAILY PRN PRN Reason: CONSTIPATION Timolol Maleate (Timoptic 0.5% Opth*) 1 drop LEFT EYE BID [facility] Last Admin: 05/24/19 21:39 Dose: 1 drop Vital Signs - 8 hr 05/25/19 05/25/19 05/25/19 02:00 03:00 03:26 Temperature Pulse Rate 70 72 70 Respiratory 21 22 20 Rate Blood Pressure 139/59 145/71 (mmHg) O2 Sat by Pulse 97 97 97 Oximetry 05/25/19 05/25/19 05/25/19 03:27 04:00 05:00 Temperature 99.5 F Pulse Rate 70 72 Respiratory 17 17 Rate Blood Pressure 136/60 141/60 (mmHg) O2 Sat by Pulse 97 96 Oximetry 05/25/19 05/25/19 05/25/19 06:00 07:00 07:02 Temperature Pulse Rate 73 Respiratory 21 17 17 Rate Blood Pressure 155/70 (mmHg) O2 Sat by Pulse 97 Oximetry 05/25/19 05/25/19 05/25/19 07:14 08:00 08:01 Temperature Pulse Rate 85 91 Respiratory 17 19 23 Rate Blood Pressure 146/69 (mmHg) O2 Sat by Pulse 95 96 Oximetry 05/25/19 08:30 Temperature 99.6 F Pulse Rate Respiratory Rate Blood Pressure (mmHg) O2 Sat by Pulse Oximetry Oxygen Devices in Use Now: Nasal Cannula Appearance: 88 yo F in nAD, AAOx2 Eyes: No Scleral Icterus, PERRLA Ears/Nose/Mouth/Throat: NL Teeth, Lips, Gums, Mucous Membranes Moist Neck: NL Appearance and Movements; NL JVP, Trachea Midline Respiratory: Symmetrical Chest Expansion and Respiratory Effort, Clear to Auscultation Cardiovascular: RRR, - - 1/6 AIDAN Abdominal: NL Sounds; No Tenderness; No Distention, No Hepatosplenomegaly Lymphatic: No Cervical Adenopathy Extremities: No Clubbing, Cyanosis, - - trace ankle ederma b/l Skin: No Rash or Ulcers, No Nodules or Sclerosis Neurological: NL Muscle Strength and Tone Result Diagrams: 05/25/19 06:00 05/25/19 06:00 Microbiology and Other Data: Microbiology 05/23/19 12:59 Nasal Screen MRSA (PCR) - Final Nasal Mrsa Not Detected Assess/Plan/Problems-Billing Assessment: Ms Fisher is an 88 yo F who has a h/o COPD with chronic hypoxic respiratory failure, HTN and diastolic CHF who presented to the ER with lethargy and was found to be in hypercapnic respiratory failure. - Patient Problems (1) Acute on chronic respiratory failure with hypercapnia Comment: Pt with chronic hypercapnic respiratory failure secondary to advanced COPD. She was started on BiPAP on admission. Today will d/c BIPAP, transfer to floor and encourage the use of pt's own CPAP. will try to wean down 02 (2) COPD (chronic obstructive pulmonary disease) Comment: Likely COPD exacerbation lead to hypercapnic respiratory failure. Continue azithromycin . switch Maliha Medrol to Prednisone (3) Diastolic CHF Comment: No signs of exacerbation. Continue lasix at home dose. (4) Hypertension Comment: Started amlodipine 5mg daily in addition to home metoprolol on 05/24/19 (5) DNR (do not resuscitate) Comment: DNR/DNI-appreciate palliative care consult. Pt is a candidate for [facility] or hospice at d/c (6) DVT prophylaxis Comment: HSQ (7) Hyperkalemia Comment: will switch to low k diet Start Veltassa Status and Disposition: inpatient
[2019-05-25] MEDS: Aspirin EC TAB* 81 MG TAB.EC PO SCH (10:05)
[2019-05-25] MEDS: amLODIPine TAB* 5 MG PO SCH (10:05)
[2019-05-25] MEDS: Metoprolol Succinate XL TAB* 25 MG PO SCH (10:05)
[2019-05-25] MEDS: Multivitamins/Minerals TAB PO SCH (10:05)
[2019-05-25] MEDS: Docusate CAP* 100 MG PO SCH ×2 (10:05→20:24)
[2019-05-25] MEDS: Cholecalciferol TAB* 400 UNIT PO SCH (10:05)
[2019-05-25] MEDS: Furosemide TAB* 20 MG PO SCH (10:05)
[2019-05-25] MEDS: Magnesium Hydroxide LIQ* 30 ML UDC PO SCH ×2 (10:06→20:23)
[2019-05-25] MEDS: Nystatin CREAM* 15 GM TUBE TOPICAL SCH ×3 (10:10→20:19)
[2019-05-25] MEDS ORDERED: methylPREDNISolone SOD 40 MG* 1 ML VIAL ONE (10:12)
[2019-05-25] MEDS: methylPREDNISolone SOD 40 MG* 1 ML VIAL IV SCH (10:14)
[2019-05-25] MEDS: Timolol 0.5% OPTH.SOL* BTL LEFT EYE SCH ×2 (10:16→20:26)
[2019-05-25] MEDS: Patiromer POWDER* 8.4 GM PAK PO SCH (13:13)
[2019-05-25] MEDS: Azithromycin 500 mg/250 ml NS 500 MG/250 ML BAG IVPB SCH (13:13)
[2019-05-25] MEDS: Atorvastatin* 40 MG TAB PO SCH (18:02)
[2019-05-25] MEDS: Latanoprost 0.005%* 2.5 ml BTL BOTH EYES SCH (20:26)
[2019-05-26] MEDS: Heparin VIAL(*) 5000 UNITS/ML VIAL (FIVE THOUSAND) SUBCUT SCH ×3 (05:13→22:57)
[2019-05-26] MEDS: Albuterol 2.5 MG/3 ML NEB.SOL* (0.083%) INH SCH ×5 (06:08→20:16)
[2019-05-26 06:34] LABS: BUN/Creatinine Ratio 45.3 (8-20); Calcium 8.6 mg/dL (8.6-10.3); EGFR African American 88.2 (>60); EGFR Non-African American 72.9 (>60); Potassium 4.8 mmol/L (3.5-5.0)
[2019-05-26] MEDS ORDERED: predniSONE TAB* 20 MG PO SCH (09:00)
[2019-05-26] MEDS: amLODIPine TAB* 5 MG PO SCH (09:03)
[2019-05-26] MEDS: Timolol 0.5% OPTH.SOL* BTL LEFT EYE SCH ×2 (09:03→22:56)
[2019-05-26] MEDS: Aspirin EC TAB* 81 MG TAB.EC PO SCH (09:04)
[2019-05-26] MEDS: Cholecalciferol TAB* 400 UNIT PO SCH (09:04)
[2019-05-26] MEDS: Furosemide TAB* 20 MG PO SCH (09:04)
[2019-05-26] MEDS: Metoprolol Succinate XL TAB* 25 MG PO SCH (09:04)
[2019-05-26] MEDS: Multivitamins/Minerals TAB PO SCH (09:05)
[2019-05-26] MEDS: Docusate CAP* 100 MG PO SCH ×2 (09:05→22:59)
[2019-05-26] MEDS: Magnesium Hydroxide LIQ* 30 ML UDC PO SCH ×2 (09:12→22:59)
[2019-05-26] MEDS: Nystatin CREAM* 15 GM TUBE TOPICAL SCH ×3 (09:51→22:59)
--- NOTE | 2019-05-26 10:07 | PN ---
Subjective Date of Service: 05/26/19 Interval History: Pt feels well. Family did not bring home CPAP and pt was sleeping on our device last night. 02 requirement down to 5 L Objective Active Medications: Acetaminophen (Tylenol Tab*) 650 mg PO Q4H PRN PRN Reason: PAIN - MILD Albuterol (Ventolin 2.5 Mg/3 Ml Neb.Kitty*) 2.5 mg INH RT.[id number] AWAKE [facility] Last Admin: 05/26/19 07:46 Dose: 2.5 mg Amlodipine Besylate (Norvasc Tab*) 5 mg PO DAILY [facility] Last Admin: 05/26/19 09:03 Dose: 5 mg Aspirin (Aspirin Ec Tab*) 81 mg PO DAILY [facility] Last Admin: 05/26/19 09:04 Dose: 81 mg Atorvastatin Calcium (Lipitor*) 40 mg PO QPM [facility] Last Admin: 05/25/19 18:02 Dose: 40 mg Cholecalciferol (Vitamin D Tab*) 400 unit PO DAILY [facility] Last Admin: 05/26/19 09:04 Dose: 400 unit Docusate Sodium (Colace Cap*) 100 mg PO BID [facility] Last Admin: 05/26/19 09:05 Dose: 100 mg Furosemide (Lasix Tab*) 20 mg PO DAILY [facility] Last Admin: 05/26/19 09:04 Dose: 20 mg Heparin Sodium (Porcine) (Heparin Vial(*)) 5,000 units SUBCUT Q8HR [facility] Last Admin: 05/26/19 05:13 Dose: Not Given Azithromycin (Zithromax 500 Mg/250 Ml) 500 mg in 250 mls @ 250 mls/hr IVPB Q24H [facility] Last Admin: 05/25/19 13:13 Dose: 250 mls/hr Latanoprost (Xalatan 0.005%*) 1 drop BOTH EYES BEDTIME [facility] Last Admin: 05/25/19 20:26 Dose: 1 drop Magnesium Hydroxide (Milk Of Magnesia Liq*) 30 ml PO BID [facility] Last Admin: 05/26/19 09:12 Dose: Not Given Magnesium Hydroxide (Milk Of Magnesia Liq*) 30 ml PO BID PRN PRN Reason: CONSTIPATION Melatonin (Melatonin) 3 mg PO BEDTIME PRN PRN Reason: INSOMNIA Metoprolol Succinate (Toprol Xl Tab*) 25 mg PO DAILY [facility] Last Admin: 05/26/19 09:04 Dose: 25 mg Morphine Sulfate (Morphine Inj (Syringe))*) 1 mg IV Q4H PRN PRN Reason: air hunger Multivitamins/Minerals (Theragran/Minerals Tab*) 1 tab PO DAILY [facility] Last Admin: 05/26/19 09:05 Dose: 1 tab Nystatin (Nystatin Cream*) 1 applic TOPICAL TID [facility] Last Admin: 05/26/19 09:51 Dose: Not Given Ondansetron HCl (Zofran Inj*) 4 mg IV Q6H PRN PRN Reason: NAUSEA Patiromer (Veltassa Powder*) 8.4 gm PO DAILY [facility] Last Admin: 05/25/19 13:13 Dose: 8.4 gm Polyethylene Glycol/Electrolytes (Miralax*) 17 gm PO DAILY PRN PRN Reason: CONSTIPATION Prednisone (Deltasone Tab*) 60 mg PO DAILY [facility] Last Admin: 05/26/19 09:05 Dose: 60 mg Senna (Senokot 8.6 Mg Tab*) 1 tab PO BEDTIME PRN PRN Reason: CONSTIPATION Sodium Biphosphate/Sodium Phosphate (Fleet Enema*) 1 bottle DE DAILY PRN PRN Reason: CONSTIPATION Timolol Maleate (Timoptic 0.5% Opth*) 1 drop LEFT EYE BID [facility] Last Admin: 05/26/19 09:03 Dose: 1 drop Vital Signs - 8 hr 05/26/19 05/26/19 03:15 07:49 Temperature 97.4 F Pulse Rate 79 80 Respiratory 20 18 Rate Blood Pressure 147/54 (mmHg) O2 Sat by Pulse 96 96 Oximetry Oxygen Devices in Use Now: Nasal Cannula Appearance: 88 yo f in nAd, aAOx2 Eyes: No Scleral Icterus, PERRLA Ears/Nose/Mouth/Throat: NL Teeth, Lips, Gums, Mucous Membranes Moist Neck: NL Appearance and Movements; NL JVP, Trachea Midline Respiratory: - - distant breath sounds b/l, no wheezes Cardiovascular: RRR, - - 2/6 AIDAN Abdominal: NL Sounds; No Tenderness; No Distention, No Hepatosplenomegaly Lymphatic: No Cervical Adenopathy Extremities: No Edema, No Clubbing, Cyanosis Skin: No Rash or Ulcers, No Nodules or Sclerosis Neurological: NL Muscle Strength and Tone Result Diagrams: 05/25/19 06:00 05/26/19 06:09 Microbiology and Other Data: Microbiology 05/23/19 12:59 Nasal Screen MRSA (PCR) - Final Nasal Mrsa Not Detected Assess/Plan/Problems-Billing Assessment: Ms Fisher is an 88 yo F who has a h/o COPD with chronic hypoxic respiratory failure, HTN and diastolic CHF who presented to the ER with lethargy and was found to be in hypercapnic respiratory failure. - Patient Problems (1) Acute on chronic respiratory failure with hypercapnia Comment: Pt with chronic hypercapnic respiratory failure secondary to advanced COPD. She was started on BiPAP on admission. Today pt is being weaned down to her home 02 requirement. Likely will go home in AM. (2) COPD (chronic obstructive pulmonary disease) Comment: Likely COPD exacerbation lead to hypercapnic respiratory failure. Continue azithromycin . Cont Prednisone (3) Diastolic CHF Comment: No signs of exacerbation. Continue lasix at home dose. (4) Hypertension Comment: Started amlodipine 5mg daily in addition to home metoprolol on 05/24/19 (5) DNR (do not resuscitate) Comment: DNR/DNI-appreciate palliative care consult. Pt is a candidate for PATH or hospice at d/c (6) DVT prophylaxis Comment: HSQ (7) Hyperkalemia Comment: normalized on Veltassa Cont renal diet Status and Disposition: inpatient
[2019-05-26] MEDS: Patiromer POWDER* 8.4 GM PAK PO SCH (10:50)
[2019-05-26 13:34] LABS: CO2 Carbon Dioxide 37 mmol/L (22-32); Calcium 8.7 mg/dL (8.6-10.3); Chloride 92 mmol/L (101-111); Sodium 136 mmol/L (135-145)
[2019-05-26 13:38] LABS: Anion Gap 7 mmol/L (2-11)
[2019-05-26 13:40] LABS: Blood Urea Nitrogen 32 mg/dL (6-24); EGFR African American 84.3 (>60); EGFR Non-African American 69.7 (>60); Glucose 94 mg/dL (70-100)
[2019-05-26] MEDS: Azithromycin 500 mg/250 ml NS 500 MG/250 ML BAG IVPB SCH (14:16)
[2019-05-26] MEDS: Atorvastatin* 40 MG TAB PO SCH (18:01)
[2019-05-26] MEDS: Latanoprost 0.005%* 2.5 ml BTL BOTH EYES SCH (22:57)
[2019-05-27] MEDS: Albuterol 2.5 MG/3 ML NEB.SOL* (0.083%) INH SCH ×2 (06:48→08:13)
[2019-05-27] MEDS ORDERED: Azithromycin TAB* 250 MG PO ONE (07:52)
[2019-05-27] MEDS: Heparin VIAL(*) 5000 UNITS/ML VIAL (FIVE THOUSAND) SUBCUT SCH (08:56)
[2019-05-27] MEDS ORDERED: predniSONE TAB* 20 MG PO SCH (09:00)
[2019-05-27] MEDS: amLODIPine TAB* 5 MG PO SCH (09:33)
[2019-05-27] MEDS: Metoprolol Succinate XL TAB* 25 MG PO SCH (09:33)
[2019-05-27] MEDS: Aspirin EC TAB* 81 MG TAB.EC PO SCH (09:34)
[2019-05-27] MEDS: Cholecalciferol TAB* 400 UNIT PO SCH (09:34)
[2019-05-27] MEDS: Docusate CAP* 100 MG PO SCH (09:35)
[2019-05-27] MEDS: Furosemide TAB* 20 MG PO SCH (09:35)
[2019-05-27] MEDS: Multivitamins/Minerals TAB PO SCH (09:35)
[2019-05-27] MEDS: Magnesium Hydroxide LIQ* 30 ML UDC PO SCH (09:36)
[2019-05-27] MEDS: Patiromer POWDER* 8.4 GM PAK PO SCH (09:38)
[2019-05-27] MEDS: Timolol 0.5% OPTH.SOL* BTL LEFT EYE SCH (09:47)
[2019-05-27 10:21] VITALS: BP 137/56
--- NOTE | 2019-05-27 11:32 | DS ---
CC: DELON Landon * DISCHARGE SUMMARY: DATE OF ADMISSION: 05/23/19 DATE OF DISCHARGE: 05/27/19 PRIMARY CARE PROVIDER: DELON Landon DISPOSITION AT DISCHARGE: To home. CONDITION AT DISCHARGE: Stable. DISCHARGE DIAGNOSIS: Acute hypoxemic and hypercapnic respiratory failure due to chronic obstructive pulmonary disease exacerbation. SECONDARY DIAGNOSIS: 1. Chronic obstructive pulmonary disease, oxygen dependent at home. The patient also has noninvasive ventilator at home. 2. Hypertension. 3. Hyperlipidemia. 4. Chronic diastolic congestive heart failure. 5. Pulmonary hypertension. 6. Status post left hip ORIF. MEDICATIONS AT DISCHARGE: 1. Lipitor 40 mg daily. 2. Vitamin D3 400 units daily. 3. Lasix 20 mg daily. 4. Metoprolol XL 25 mg daily. 5. Multivitamin 1 tablet daily. 6. Timolol eyedrops one drop to the left eye daily. 7. Travatan eyedrops one drop to both eyes daily. 8. Albuterol one inhalation every 4 hours p.r.n. 9. DuoNeb nebulizer one nebulizer every 4 hours p.r.n. 10. Norvasc 5 mg daily. 11. Aspirin 81 mg daily. 12. Colace 100 mg b.i.d. 13. Advair 250/50 one inhalation b.i.d. 14. Prednisone 40 mg daily for 5 days, then 20 mg daily for 5 days, and then continue with 10 mg daily until seen by primary care provider and directed further. 15. Spiriva mist inhaler one inhalation daily. The patient has had problems with using her noninvasive ventilator at home. We are going to arrange for [facility] to come over to the patient's home after discharge and try to adjust the settings. The patient is to continue oxygen at 3 to 4 L continuously at home. Currently, she is on 3 L via nasal cannula at the hospital. LABORATORY DATA AND STUDIES PERFORMED DURING THE HOSPITAL STAY: Included _ white blood cell count of 6.5, hemoglobin of 10.7, hematocrit 34, platelets 140. Sodium 136. Potassium was hemolyzed on 05/26/19; it was 4.8 the day before. Carbon dioxide 37, BUN 32, creatinine 0.78. Microbiology studies: No MRSA on nasal swab. Blood cultures negative, urine cultures negative. Chest x-ray at admission, impression: "Hyperinflation. Pulmonary interstitial edema. Bilateral pleural effusions. Bibasilar atelectasis versus consolidation." HOSPITALIZATION COURSE: Mirella Fisher is an 88-year-old female with history of severe COPD, oxygen dependent at 3 L at home, who presented to the hospital with hypercapnic and hypoxemic respiratory failure. She required BiPAP at admission and spent a couple of days in the ICU. Eventually, she was able to be transferred to the medical floor and did very well. She used BiPAP during the night at our facility and she is planning to use noninvasive ventilator at home at night. By the time of discharge, she was down to 3 L of oxygen via nasal cannula. Throughout her hospital stay, she was treated with Solu-Medrol and switched to prednisone. She was also on a 5-day course of azithromycin, which was completed by the time of discharge. She was noted to be hypertensive and amlodipine was started. She had mild hyperkalemia and she was treated with Veltassa for a couple of days. Due to her severe COPD, Dr. Anderson saw the patient in consultation and recommended likely PATH program at discharge. The patient was not deemed to be a hospice candidate yet. The patient is recommended to follow up with her primary care provider in 4 to 7 days. PHYSICAL EXAM AT THE TIME OF DISCHARGE: Blood pressure of 119/56, heart rate of 89 and regular, respiratory rate 14, oxygen saturation 87% on 3 L of oxygen by nasal cannula, temperature 98.4. General: The patient is a very pleasant 88 -year-old female who is in no acute distress. The patient is alert and oriented x2. HEENT: Head: Atraumatic, normocephalic. Eyes: Pupils are equal, reactive to light and accommodation. Oropharynx is clear. Mucosa moist. Neck : Supple. No JVD. No bruits bilaterally. Cardiovascular: Regular rate and rhythm. 2/6 systolic ejection murmur noted on the right upper sternal border. Respiratory: Distant breath sounds bilaterally, no wheezes. Abdomen: Soft, nontender. Bowel sounds are present in all 4 quadrants. Lower Extremities: There is no edema. Pulses are +2 bilaterally. No clubbing. No cyanosis. On neuro evaluation, speech is clear. Cranial nerves II through XII grossly intact. Motor strength is 5/5 bilaterally. Please note that the patient has very limited ambulation at home, but the family requested for the patient to go home. They are able to provide 24x7 care with all the members of family contributing. The patient stated that she has a nebulizer machine at home and she is going to be prescribed DuoNeb treatment which she stated that she used at home, although it did not appear to be prescribed in the past couple of months from looking into pharmacy records. DISPOSITION AT DISCHARGE: Home. CONDITION AT DISCHARGE: Stable. Please note that this is a short summary of the patient's hospitalization. Please refer to further medical records for details. TIME SPENT: Approximately 45 minutes was spent on the patient's discharge. [id number]/CPS #: [id number] MTDD
[2019-05-27] MEDS: Nystatin CREAM* 15 GM TUBE TOPICAL SCH (12:06)
== END 2019-05-27 11:00 | disposition home health service (06) | DRG 189 ==
LOC: ED 09:44 → ICU 11:31 → MED 05-25 09:01
PROVIDERS: ADMIT Hospitalist; ATTEND Internal Medicine
PROC: 5A09357 Assistance with Respiratory Ventilation, Less than 24 Consecutive Hours, Continuous Positive Airway Pressure (ICD-10-PCS; principal; 2019-05-23)
DX: J96.21 Acute and chronic respiratory failure with hypoxia (principal); I50.32 Chronic diastolic (congestive) heart failure; J43.9 Emphysema, unspecified; Z66 Do not resuscitate; J96.22 Acute and chronic respiratory failure with hypercapnia; I11.0 Hypertensive heart disease with heart failure; E78.5 Hyperlipidemia, unspecified; I27.20 Pulmonary hypertension, unspecified; D72.819 Decreased white blood cell count, unspecified; E87.5 Hyperkalemia; R79.89 Other specified abnormal findings of blood chemistry; H54.8 Legal blindness, as defined in USA; H40.9 Unspecified glaucoma; H35.30 Unspecified macular degeneration; Z87.891 Personal history of nicotine dependence; Z99.81 Dependence on supplemental oxygen; Z28.21 Immunization not carried out because of patient refusal; Z79.82 Long term (current) use of aspirin; Z79.899 Other long term (current) drug therapy; Z79.51 Long term (current) use of inhaled steroids
CPT/HCPCS: 36415; 36600; 71045; 80048; 80053; 82550; 82553; 82803; 83605; 83880; 84484; 85025; 85730; 86140; 87040; 87641; 93005; 94640; 94660; 99285; A9270-GY; G8978-GP-CJ; G8979-GP-CI; J0456; J1644; J2920; J2930; J7512

== ENCOUNTER 2019-06-11 09:22 | Inpatient (IN) | payer MEDICARE, BC ==
[2019-06-11] MEDS ORDERED: NS 0.9% 1000 ML** 1,000 ML IV ONE ×2 (09:36→11:24)
[2019-06-11] MEDS ORDERED: methylPREDNISolone 125 MG* 2 ML VIAL IV ONE (09:36)
--- OUTSIDE RECORDS SUMMARY | 2019-06-11 09:36 | XMS REPORT ---
:1930 Author Organization [facility] Care Team Providers Name Role Phone Unavailable Unavailable Unavailable Problems Condition Condition Condition Status Onset Resolution Last Treating Comments Name Details Category Date Date Treatment Clinician Date Chronic Chronic Diagnosis Active 2018-06 Nella obstructive obstructive 2-06 Ingrahm pulmonary pulmonary [id number] disease disease with with (acute) (acute) exacerbatio exacerbatio n n Acute and Acute and Diagnosis Active 2018-06 Nella chronic chronic 2-06 Ingrahm respiratory respiratory [id number] failure failure with with hypercapnia hypercapnia Acute Acute Diagnosis Active 2018-06 Nella respiratory respiratory 2-06 Ingrahm failure failure [id number] with with hypoxia hypoxia 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 [id number] with heart with heart failure failure Unspecified Unspecified Diagnosis Active Nella 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-18 Ingrahm (congestive (congestive [id number] ) heart ) heart failure failure Pulmonary Pulmonary Diagnosis Active Nella hypertensio hypertensio - Ingrahm n, n, [id number] unspecified unspecified Unspecified Unspecified Diagnosis Active Nella glaucoma glaucoma Ingrm [id number] Dependence Dependence Diagnosis Active Nella on on Ingrahm supplementa supplementa [id number] l oxygen l oxygen custodial emt intermediate Diagnosis Active Nella (current) (current) Ingrahm use of use of [id number] systemic systemic steroids steroids emt intermediate custodial Diagnosis Active Nella (current) (current) Ingrahm use of use of [id number] aspirin aspirin Personal Personal Diagnosis Active Nella history of history of Ingrahm nicotine nicotine [id number] dependence dependence Pain frequent Pain Mgmt Active 2018-06 Suzan pain 2-13 (Yina) 09:45: Cates 00 [id number] Cardio edema Cardiovasc Active 2018-06 Suzan ular 2-13 (Yina) 09:45: Cates [id number] Respiratory dyspnea Respirator Active 2019- Suzan present y 2-13 (Yina) 09:45: Cates [id number] Respiratory lung sounds Respirator Active 2018- Suzan deficit y 2-13 (Yina) 09:45: Cates 00 [id number] Endo/Lonny anti-coagul Endo/Lonny Active 2018-06 Suzan ation 2-13 (Yian) therapy 09:45: Cates [id number] Integument skin Integument Active 2018-06 Suzan integrity 2-13 (Yina) risk 09:45: Cates [id number] Elimination urinary Eliminatio Active 2018-06 Suzan incontinenc n 2-13 (Yina) e 09:45: Cates [id number] Elimination bowel Eliminatio Active 2018-06 Suzan incontinenc n 2-13 (Yina) e 09:45: Cates [id number] Neuro confusion Neuro/Emot Active 2018-06 Suzan present ion 2-13 (Yina) 09:45: Cates [id number] Neuro impaired Neuro/Emot Active 2018-06 Suzan decision-ma ion 2-13 (Yina) celeste 09:45: Cates [id number] Neuro memory Neuro/Emot Active 2018- Suzan deficit ion 2-13 (Yina) needing 09:45: Cates supervision 00 [id number] Activity ADL Activity Active 2018- Suzan assistance 2-13 (Yina) required 09:45: Cates [id number] Activity self-care Activity Active 2018- Suzan deficit 2-13 (Yina) 09:45: Cates [id number] Safety fall risk Safety Active 2019- Suzan factor 2-13 (Yina) present 09:45: Cates [id number] Safety risk for Safety Active 2018- Suzan hospitaliza 2-13 (Yina) tion 09:45: Cates [id number] Safety can be left Safety Active 2018- Suzan alone for 2-13 (Yina) only short 09:45: Cates periods 00 [id number] Medication oral med Meds Active 2018-06 Suzan assistance 2-13 (Yina) required 09:45: Cates [id number] Medication potential Meds Active 2018-06 Suzan clinically 2-13 (Yina) significant 09:45: Cates medication [id number] issue Musculoskel transfer Musculoske Active 2018-06 Suzan etal assistance letal 2-13 (Yina) required 09:45: Cates 00 [id number] Musculoskel requires Musculoske Active 2018-06 Suzan etal human letal 2-13 (Yina) assist to 09:45: Cates leave home 00 [id number] Respiratory knowledge/s Respirator Active 2018-06 Malaika kill y 2-20 Reilley deficit: cg 16:25: [id number] 00 Sensory impaired Sensory Active 2018-06 Malaika vision 2-20 Reilley 16:25: [id number] 00 Elimination knowledge/s Eliminatio Active 2018-06 Malaika kill n 2-20 Reilley deficit: cg 16:25: [id number] 00 Neuro knowledge/s Neuro/Emot Active 2018-06 Malaika kill ion 2-20 Reilley deficit: cg 16:25: [id number] 00 Activity knowledge/s Activity Active 2018-06 Malaika kill 2-20 Reilley deficit: pt 16:25: [id number] 00 Activity knowledge/s Activity Active 2018-06 Malaika kill 2-20 Reilley deficit: cg 16:25: [id number] 00 Safety structural Safety Active 2018-06 Malaika barriers 2-20 Reilley present 16:25: [id number] 00 Safety knowledge/s Safety Active 2018-06 Malaika kill 2-20 Reilley deficit: cg 16:25: [id number] 00 Medication knowledge/s Meds Active 2018-06 Malaika kill 2-20 Reilley deficit: cg 16:25: [id number] 00 Bed mobility/tr PT/OT: Bed Active 2018-06 Malaika Mobility/Tr ansfer Mobility/T 2-20 Reilley ansfer device ransfer 16:25: [id number] present 00 Bed transfer PT/OT: Bed Active 2018-06 Malaika Mobility/Tr deficit: Mobility/T 2-20 Reilley ansfer standing ransfer 16:25: [id number] pivot 00 Bed transfer PT/OT: Bed Active 2018-06 Malaika Mobility/Tr deficit: Mobility/T 2-20 Reilley ansfer toilet/comm ransfer 16:25: [id number] ode 00 Bed knowledge/s PT/OT: Bed Active 2018-06 Malaika Mobility/Tr kill Mobility/T 2-20 Reilley ansfer deficit: pt ransfer 16:25: [id number] 00 Bed knowledge/s PT/OT: Bed Active 2018-06 Malaika Mobility/Tr kill Mobility/T 2-20 Reilley ansfer deficit: cg ransfer 16:25: [id number] 00 Balance/End balance/change management coordinator PT/OT: Active 2018-06 Malaika urance rdination Balance/En 2-20 Reilley deficit durance 16:25: [id number] 00 Balance/End endurance PT/OT: Active 2018-06 Malaika urance deficit Balance/En 2-20 Reilley durance 16:25: [id number] 00 Balance/End knowledge/s PT/OT: Active 2018-06 Malaika urance kill Balance/En 2-20 Reilley deficit: pt durance 16:25: [id number] 00 Equipment wheelchair PT/OT: Active 2018-06 Malaika Mgmt mgmt Equipment 2-20 Reilley deficit Mgmt 16:25: [id number] 00 Equipment knowledge/s PT/OT: Active 2018-06 Amlaika Mgmt kill Equipment 2-20 Reilley deficit: pt Mgmt 16:25: [id number] 00 Equipment propulsion PT/OT: Active 2018-06 Malaika Mgmt deficit Equipment 2-20 Reilley Mgmt 16:25: [id number] 00 OT: Self self-care OT: Active 2018-06 Malaika Care deficit Self-Care 2-20 Reilley 16:25: [id number] 00 OT: Self knowledge/s OT: Active 2018-06 Malaika Care kill Self-Care 2-20 Reilley deficit: pt 16:25: [id number] 00 Gait/Locomo gait PT/OT: Active 2018-06 Malaika tion assistive Gait/Locom 2-20 Reilley problems device otion 16:25: [id number] present 00 Gait/Locomo knowledge/s PT/OT: Active 2018-06 Malaika tion kill Gait/Locom 2-20 Reilley problems deficit: pt otion 16:25: [id number] 00 Gait/Locomo knowledge/s PT/OT: Active 2018-06 Malaika tion kill Gait/Locom 2-20 Reilley problems deficit: cg otion 16:25: [id number] 00 Gait/Locomo gait PT/OT: Active 2019 Malaika tion deficit Gait/Locom 2-20 Reilley problems otion 16:25: [id number] 00 Allergies, Adverse Reactions, Alerts Allergy Allergy Status Severity Reaction(s) Onset Inactive Treating Comments Name Type Date Date Clinician Unknown None Active Unknown None Unknown No Known Allergies For This Patient Medications Ordered Filled Start Stop Current Ordering Indication Dosage Frequency Signature Comments Components Medication Medication Date Date Medication? Clinician (SIG) Name Name albuterol albuterol 2019- Yes Luda Unknown Unknown sulfate 2.5 sulfate 2.5 2-13 ,Frank mg/3 mL mg/3 mL er J (0.083 %) (0.083 %) solution solution for for nebulizatio nebulizatio n n amLODIPine amLODIPine 2018- Yes Luda Unknown Unknown 5 mg tablet 5 mg tablet 2-13 ,Frank er J predniSONE predniSONE 2018- Yes Luda Unknown Unknown 20 mg 20 mg 2-13 ,Frank tablet tablet er J Ventolin Ventolin 2018-06 Yes Luda Unknown Unknown HFA 90 HFA 90 2-13 Frank WOOTEN mcg/actuati mcg/actuati er J on aerosol on aerosol inhaler inhaler Advair Advair 2018-06 Yes Luda Unknown Unknown Diskus 250 Diskus 250 2-13 Frank WOOTEN mcg-50 mcg-50 er J mcg/dose mcg/dose powder for powder for inhalation inhalation Spiriva Spiriva 2018- Yes Luda Unknown Unknown Respimat Respimat 2-13 Frank WOOTEN 1.25 1.25 er J mcg/actuati mcg/actuati on solution on solution for for inhalation inhalation timolol 0.5 timolol 0.5 2018- Yes Luda Unknown Unknown % eye drops % eye drops 2-13 ,Frank er J Travatan Z Travatan Z 2018-06 Yes Luda Unknown Unknown 0.004 % eye 0.004 % eye 2-13 ,Frank drops drops er J furosemide furosemide 2018- Yes Luda Unknown Unknown 20 mg 20 mg 2-13 MD,Frank tablet tablet er J metoprolol metoprolol 2018- Yes Luda Unknown Unknown succinate succinate 2-13 ,Frank ER 25 mg ER 25 mg er J tablet,exte tablet,exte nded nded release 24 release 24 hr hr oxygen oxygen 2019- Yes Luda Unknown Unknown 2-13 ,Frank er J Vital Signs Vital Name Observation Time Observation Value Comments SYSTOLIC mm[Hg] 2019-06-08 18:09:29 122 mm[Hg] mm[Hg] Method: Sit SYSTOLIC mm[Hg] 2019-06-05 18:09:26 120 mm[Hg] mm[Hg] Method: Stand DIASTOLIC mm[Hg] 2019-06-08 18:09:29 64 mm[Hg] mm[Hg] Method: Sit DIASTOLIC mm[Hg] 2019-06-05 18:09:26 70 mm[Hg] mm[Hg] Method: Stand PULSE 2019-06-08 18:09:29 63 /min /min RESP RATE 2019-06-05 18:09:26 16 /min /min TEMP 2019-06-08 18:09:29 97.4 [degF] Procedures This patient has no known procedures. Results This patient has no known results.
--- OUTSIDE RECORDS SUMMARY | 2019-06-11 09:36 | XMS REPORT ---
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 with with (acute) (acute) exacerbatio exacerbatio n n Acute and Acute and Diagnosis Active 2018-06 Nella chronic chronic 2-06 Ingrahm respiratory respiratory [id number] failure failure with with hypercapnia hypercapnia Acute Acute Diagnosis Active 2018-06 Nella respiratory respiratory 2-06 Ingrahm failure failure [id number] with with hypoxia hypoxia 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 Unspecified Unspecified Diagnosis Active Nella 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-18 Ingrahm (congestive (congestive [id number] ) heart ) heart failure failure Pulmonary Pulmonary Diagnosis Active Nella hypertensio hypertensio - Ingrahm n, n, [id number] unspecified unspecified Unspecified Unspecified Diagnosis Active Nella glaucoma glaucoma Ingrm [id number] Dependence Dependence Diagnosis Active Nella on on Ingrahm supplementa supplementa [id number] l oxygen l oxygen [facility] 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 Nella (current) (current) Ingrahm use of use of [id number] systemic systemic steroids steroids [facility] 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 Nella (current) (current) Ingrm use of use of [id number] aspirin aspirin Personal Personal Diagnosis Active Nella history of history of Ingrahm nicotine nicotine [id number] dependence dependence Pain frequent Pain Mgmt Active 2018-06 Suzan pain 2-13 (Yina) 09:45: Cates 00 [id number] Cardio edema Cardiovasc Active 2018-06 Suzan ular 2-13 (Yina) 09:45: Cates [id number] Respiratory dyspnea Respirator Active 2019- Suzan present y 2-13 (Yina) 09:45: Cates [id number] Respiratory lung sounds Respirator Active 2018- Suzan deficit y 2-13 (Yina) 09:45: Cates 00 [id number] Endo/Lonny anti-coagul Endo/Lonny Active 2018-06 Suzan ation 2-13 (Yina) therapy 09:45: Cates [id number] Integument skin Integument Active 2018-06 Suzan integrity 2-13 (Yina) risk 09:45: Cates [id number] Elimination urinary Eliminatio Active 2018-06 Suzan incontinenc n 2-13 (Yina) e 09:45: Cates [id number] Elimination bowel Eliminatio Active 2018-06 Suzan incontinenc n 2-13 (Yina) e 09:45: Cates [id number] Neuro confusion Neuro/Emot Active 2018-06 Suzan present ion 2-13 (Yina) 09:45: Cates [id number] Neuro impaired Neuro/Emot Active 2018-06 Suzan decision-ma ion 2-13 (Yina) celeste 09:45: Cates [id number] Neuro memory Neuro/Emot Active 2018- Suzan deficit ion 2-13 (Yina) needing 09:45: Cates supervision 00 [id number] Activity ADL Activity Active 2018- Suzan assistance 2-13 (Yina) required 09:45: Cates [id number] Activity self-care Activity Active 2018- Suzan deficit 2-13 (Yina) 09:45: Cates [id number] Safety fall risk Safety Active 2019- Suzan factor 2-13 (Yina) present 09:45: Cates [id number] Safety risk for Safety Active 2018- Suzan hospitaliza 2-13 (Yina) tion 09:45: Cates [id number] Safety can be left Safety Active 2018- Suzan alone for 2-13 (Yina) only short 09:45: Cates periods 00 [id number] Medication oral med Meds Active 2018-06 Suzan assistance 2-13 (Yina) required 09:45: Cates [id number] Medication potential Meds Active 2018-06 Suzan clinically 2-13 (Yina) significant 09:45: Cates medication [id number] issue Musculoskel transfer Musculoske Active 2018-06 Suzan etal assistance letal 2-13 (Iyna) required 09:45: Cates 00 [id number] Musculoskel requires Musculoske Active 2018-06 Suzan etal human letal 2-13 (Yina) assist to 09:45: Cates leave home [id number] Allergies, Adverse Reactions, Alerts Allergy Allergy Status Severity Reaction(s) Onset Inactive Treating Comments Name Type Date Date Clinician Unknown None Active Unknown None Unknown No Known Allergies For This Patient Medications Ordered Filled Start Stop Current Ordering Indication Dosage Frequency Signature Comments Components Medication Medication Date Date Medication? Clinician (SIG) Name Name albuterol albuterol 2018-06 Yes Luda Unknown Unknown sulfate 2.5 sulfate 2.5 2-13 Frank WOOTEN mg/3 mL mg/3 mL er J (0.083 %) (0.083 %) solution solution for for nebulizatio nebulizatio n n amLODIPine amLODIPine 2018-06 Yes Luda Unknown Unknown 5 mg tablet 5 mg tablet 2-13 ,Frank er J predniSONE predniSONE 2018-06 Yes Luda Unknown Unknown 20 mg 20 mg 2-13 Frank WOOTEN tablet tablet er J Ventolin Ventolin 2018-06 Yes Luda Unknown Unknown HFA 90 HFA 90 2-13 Frank WOOTEN mcg/actuati mcg/actuati er J on aerosol on aerosol inhaler inhaler Advair Advair 2018-06 Yes Luda Unknown Unknown Diskus 250 Diskus 250 2-13 Frank WOOTEN mcg-50 mcg-50 er J mcg/dose mcg/dose powder for powder for inhalation inhalation Spiriva Spiriva 2018-06 Yes Luda Unknown Unknown Respimat Respimat 2-13 Frank WOOTEN 1.25 1.25 er J mcg/actuati mcg/actuati on solution on solution for for inhalation inhalation timolol 0.5 timolol 0.5 2018-06 Yes Luda Unknown Unknown % eye drops % eye drops 2-13 ,Jojond er J Travatan Z Travatan Z 2018-06 Yes Luda Unknown Unknown 0.004 % eye 0.004 % eye 2-13 Frank WOOTEN drops drops er J furosemide furosemide 2018-06 Yes Luda Unknown Unknown 20 mg 20 mg 2-13 ,Frank tablet tablet er J metoprolol metoprolol 2018-06 Yes Luda Unknown Unknown succinate succinate 2-13 ,Frank ER 25 mg ER 25 mg er J tablet,exte tablet,exte nded nded release 24 release 24 hr hr oxygen oxygen 2018-06 Yes Luda Unknown Unknown 2-13 MD,Alexand er J Vital Signs Vital Name Observation Time Observation Value Comments SYSTOLIC mm[Hg] 2019-06-05 18:09:26 120 mm[Hg] mm[Hg] Method: Sit SYSTOLIC mm[Hg] 2019-06-05 18:09:26 120 mm[Hg] mm[Hg] Method: Stand DIASTOLIC mm[Hg] 2019-06-05 18:09:26 70 mm[Hg] mm[Hg] Method: Sit DIASTOLIC mm[Hg] 2019-06-05 18:09:26 70 mm[Hg] mm[Hg] Method: Stand PULSE 2019-06-05 18:09:26 78 /min /min RESP RATE 2019-06-05 18:09:26 16 /min /min TEMP 2019-06-05 18:09:26 98.4 [degF] Procedures This patient has no known procedures. Results This patient has no known results.
--- OUTSIDE RECORDS SUMMARY | 2019-06-11 09:36 | XMS REPORT ---
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 2-06 [facility] pulmonary pulmonary [id number] disease disease with with (acute) (acute) exacerbatio exacerbatio n n Acute and Acute and Diagnosis Active 2018-06 Nella chronic chronic 2-06 Ingrahm respiratory respiratory [id number] failure failure with with hypercapnia hypercapnia Acute Acute Diagnosis Active 2018-06 Nella respiratory respiratory 2-06 Ingrahm failure failure [id number] with with hypoxia hypoxia 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 [id number] with heart with heart failure failure Unspecified Unspecified Diagnosis Active Nella 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-18 Ingrahm (congestive (congestive [id number] ) heart ) heart failure failure Pulmonary Pulmonary Diagnosis Active Nella hypertensio hypertensio - Ingrahm n, n, [id number] unspecified unspecified Unspecified Unspecified Diagnosis Active Nella glaucoma glaucoma Ingrm [id number] Dependence Dependence Diagnosis Active Nella on on Ingrahm supplementa supplementa [id number] l oxygen l 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) Ingrahm use of use of [id number] systemic systemic steroids steroids 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) (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) Ingrahm use of use of BH644506 aspirin aspirin Personal Personal Diagnosis Active Nella history of history of Ingrahm nicotine nicotine AZ986942 dependence dependence Pain frequent Pain Mgmt Active 2018-06 Suzan pain 2-13 (Yina) 09:45: Cates 00 [id number] Cardio edema Cardiovasc Active 2018-06 Suzan ular 2-13 (Yina) 09:45: Cates [id number] Respiratory dyspnea Respirator Active 2019- Suzan present y 2-13 (Yina) 09:45: Cates [id number] Respiratory lung sounds Respirator Active 2018- Suzan deficit y 2-13 (Yina) 09:45: Cates 00 [id number] Endo/Lonny anti-coagul Endo/Lonny Active 2018-06 Suzan ation 2-13 (Yina) therapy 09:45: Cates YN158462 Integument skin Integument Active 2018-06 Suzan integrity 2-13 (Yina) risk 09:45: Cates BR303049 Elimination urinary Eliminatio Active 2018-06 Suzan incontinenc n 2-13 (Yina) e 09:45: Cates BN098343 Elimination bowel Eliminatio Active 2018-06 Suzan incontinenc n 2-13 (Yina) e 09:45: Cates [id number] Neuro confusion Neuro/Emot Active 2018-06 Suzan present ion 2-13 (Yina) 09:45: Cates UR816356 Neuro impaired Neuro/Emot Active 2018-06 Suzan decision-ma ion 2-13 (Yina) celeste 09:45: Cates WH232683 Neuro memory Neuro/Emot Active 2018- Suzan deficit ion 2-13 (Yina) needing 09:45: Cates supervision 00 [id number] Activity ADL Activity Active 2018- Suzan assistance 2-13 (Yina) required 09:45: Cates KM069911 Activity self-care Activity Active 2018- Suzan deficit 2-13 (Yina) 09:45: Cates RF066900 Safety fall risk Safety Active 2019- Suzan factor 2-13 (Yina) present 09:45: Cates PF737284 Safety risk for Safety Active 2018- Suzan hospitaliza 2-13 (Yina) tion 09:45: Cates QV386909 Safety can be left Safety Active 2018- Suzan alone for 2-13 (Yina) only short 09:45: Cates periods 00 [id number] Medication oral med Meds Active 2018-06 Suzan assistance 2-13 (Yina) required 09:45: Cates PL465363 Medication potential Meds Active 2018-06 Suzan clinically 2-13 (Yina) significant 09:45: Cates medication [id number] issue Musculoskel transfer Musculoske Active 2018-06 Suzan etal assistance letal 2-13 (Yina) required 09:45: Cates 00 [id number] Musculoskel requires Musculoske Active 2018-06 Suzan etal human letal 2-13 (Yina) assist to 09:45: Cates leave home [id number] Allergies, Adverse Reactions, Alerts Allergy Allergy Status [...]
--- OUTSIDE RECORDS SUMMARY | 2019-06-11 09:36 | XMS REPORT ---
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 2-06 Ingra[facility] pulmonary pulmonary [id number] disease disease with with (acute) (acute) exacerbatio exacerbatio n n Acute and Acute and Diagnosis Active 2018-06 Nella chronic chronic 2-06 Ingrahm respiratory respiratory [id number] failure failure with with hypercapnia hypercapnia Acute Acute Diagnosis Active 2018-06 Nella respiratory respiratory 2-06 Ingrahm failure failure [id number] with with hypoxia hypoxia 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 [id number] with heart with heart failure failure Unspecified Unspecified Diagnosis Active Nella 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-18 Ingrahm (congestive (congestive [id number] ) heart ) heart failure failure Pulmonary Pulmonary Diagnosis Active Nella hypertensio hypertensio - Ingrahm n, n, [id number] unspecified unspecified Unspecified Unspecified Diagnosis Active Nella glaucoma glaucoma Ingrm [id number] Dependence Dependence Diagnosis Active Nella on on Ingrahm supplementa supplementa [id number] l oxygen l oxygen 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 Active Nella (current) (current) Ingrahm use of use of HQ786992 systemic systemic steroids steroids director long term care custodial Diagnosis Active Nella (current) (current) Ingrahm use of use of NJ124765 aspirin aspirin Personal Personal Diagnosis Active Nella history of history of Ingrahm nicotine nicotine [id number] dependence dependence Pain frequent Pain Mgmt Active 2018-06 Suzan pain 2-13 (Yina) 09:45: Cates 00 KG619187 Cardio edema Cardiovasc Active 2018-06 Suzan ular 2-13 (Yina) 09:45: Cates ZF306766 Respiratory dyspnea Respirator Active 2019- Suzan present y 2-13 (Yina) 09:45: Cates NF680373 Respiratory lung sounds Respirator Active 2018- Suzan deficit y 2-13 (Yina) 09:45: Cates 00 AQ979183 Endo/Lonny anti-coagul Endo/Lonny Active 2018-06 Suzan ation 2-13 (Yina) therapy 09:45: Cates DT958195 Integument skin Integument Active 2018-06 Suzan integrity 2-13 (Yina) risk 09:45: Cates JM245080 Elimination urinary Eliminatio Active 2018-06 Suzan incontinenc n 2-13 (Yina) e 09:45: Cates OR315426 Elimination bowel Eliminatio Active 2018-06 Suzan incontinenc n 2-13 (Yina) e 09:45: Cates CJ180265 Neuro confusion Neuro/Emot Active 2018-06 Suzan present ion 2-13 (Yina) 09:45: Cates HD345019 Neuro impaired Neuro/Emot Active 2018-06 Suzan decision-ma ion 2-13 (Yina) celeste 09:45: Cates KH940455 Neuro memory Neuro/Emot Active 2018- Suzan deficit ion 2-13 (Yina) needing 09:45: Cates supervision 00 [id number] Activity ADL Activity Active 2018- Suzan assistance 2-13 (Yina) required 09:45: Cates BG111143 Activity self-care Activity Active 2018- Suzan deficit 2-13 (Yina) 09:45: Cates [id number] Safety fall risk Safety Active 2019- Suzan factor 2-13 (Yina) present 09:45: Cates ME591861 Safety risk for Safety Active 2018- Suzan hospitaliza 2-13 (Yina) tion 09:45: Cates KP561737 Safety can be left Safety Active 2018- Suzan alone for 2-13 (Yina) only short 09:45: Cates periods 00 [id number] Medication oral med Meds Active 2018-06 Suzan assistance 2-13 (Yina) required 09:45: Cates NY182650 Medication potential Meds Active 2018-06 Suzan clinically 2-13 (Yina) significant 09:45: Cates medication [id number] issue Musculoskel transfer Musculoske Active 2018-06 Suzan etal assistance letal 2-13 (Yina) required 09:45: Cates 00 [id number] Musculoskel requires Musculoske Active 2018-06 Suzan etal human letal 2-13 (Yina) assist to 09:45: Cates leave home 00 [id number] Respiratory knowledge/s Respirator Active 2018-06 Malaika kill y 2-20 Reilley deficit: cg 16:25: [id number] 00 Sensory impaired Sensory Active 2018-06 Malaika vision 2-20 Reilley 16:25: [id number] 00 Elimination knowledge/s Eliminatio Active 2018-06 Malaika kill n 2-20 Reilley deficit: cg 16:25: [id number] 00 Neuro knowledge/s Neuro/Emot Active 2018-06 Malaika kill ion 2-20 Reilley deficit: cg 16:25: [id number] 00 Activity knowledge/s Activity Active 2018-06 Malaika kill 2-20 Reilley deficit: pt 16:25: [id number] 00 Activity knowledge/s Activity Active 2018-06 Malaika kill 2-20 Reilley deficit: cg 16:25: [id number] 00 Safety structural Safety Active 2018-06 Malaika barriers 2-20 Reilley present 16:25: [id number] 00 Safety knowledge/s Safety Active 2018-06 Malaika kill 2-20 Reilley deficit: cg 16:25: [id number] 00 Medication knowledge/s Meds Active 2018-06 Malaika kill 2-20 Reilley deficit: cg 16:25: [id number] 00 Bed mobility/tr PT/OT: Bed Active 2018-06 Malaika Mobility/Tr ansfer Mobility/T 2-20 Reilley ansfer device ransfer 16:25: [id number] present 00 Bed transfer PT/OT: Bed Active 2018-06 Malaika Mobility/Tr deficit: Mobility/T 2-20 Reilley ansfer standing ransfer 16:25: [id number] pivot 00 Bed transfer PT/OT: Bed Active 2018-06 Malaika Mobility/Tr deficit: Mobility/T 2-20 Reilley ansfer toilet/comm ransfer 16:25: [id number] ode 00 Bed knowledge/s PT/OT: Bed Active 2018-06 Malaika Mobility/Tr kill Mobility/T 2-20 Reilley ansfer deficit: pt ransfer 16:25: [id number] 00 Bed knowledge/s PT/OT: Bed Active 2018-06 Malaika Mobility/Tr kill Mobility/T 2-20 Reilley ansfer deficit: cg ransfer 16:25: [id number] 00 Balance/End balance/cook sauce PT/OT: Active 2018-06 Malaika urance rdination Balance/En 2-20 Reilley deficit durance 16:25: [id number] 00 Balance/End endurance PT/OT: Active 2018-06 Malaika urance deficit Balance/En 2-20 Reilley durance 16:25: [id number] 00 Balance/End knowledge/s PT/OT: Active 2018-06 Malaika urance kill Balance/En 2-20 Reilley deficit: pt durance 16:25: [id number] 00 Equipment wheelchair PT/OT: Active 2018-06 Malaika Mgmt mgmt Equipment 2-20 Reilley deficit Mgmt 16:25: [id number] 00 Equipment knowledge/s PT/OT: Active 2018-06 Malaika Mgmt kill Equipment 2-20 Reilley deficit: pt Mgmt 16:25: [id number] 00 Equipment propulsion PT/OT: Active 2018-06 Malaika Mgmt deficit Equipment 2-20 Reilley Mgmt 16:25: [id number] 00 OT: Self self-care OT: Active 2018-06 Malaika Care deficit Self-Care 2-20 Reilley 16:25: [id number] 00 OT: Self knowledge/s OT: Active 2018-06 Malaika Care kill Self-Care 2-20 Reilley deficit: pt 16:25: [id number] 00 Gait/Locomo gait PT/OT: Active 2018-06 Amlaika tion assistive Gait/Locom 2-20 Reilley problems device otion 16:25: [id number] present 00 Gait/Locomo knowledge/s PT/OT: Active 2018-06 Malaika tion kill Gait/Locom 2-20 Reilley problems deficit: pt otion 16:25: [id number] 00 Gait/Locomo knowledge/s PT/OT: Active 2018-06 Malaika tion kill Gait/Locom 2-20 Reilley problems deficit: cg otion 16:25: [id number] 00 Gait/Locomo gait PT/OT: Active 2019 Malaika tion deficit Gait/Locom 2-20 Reilley problems otion 16:25: [id number] 00 Allergies, Adverse Reactions, Alerts Allergy Allergy [...]
--- NOTE | 2019-06-11 09:37 | ED ---
Respiratory - HPI Summary HPI Summary: Level 5 Caveat - Unresponsive This patient is a 88 year old F presenting to [facility] by EMS accompanied by daughter. Per EMS Pt has a PMHx of COPD, and pt is legally blind. Pt has a FHx of stroke. Pt is on BiPAP at home, and daughter put her on nasal cannula before calling EMS. Pt has been in decline for 2 days. Pt is normally able to converse and does not take any narcotics according to daughter. - History of Current Complaint Stated Complaint: AMS, RESPIRATORY DISTRESS Time Seen by Provider: 06/11/19 09:24 Hx Obtained From: EMS Onset/Duration: Gradual Onset, Still Present Initial Severity: Moderate Current Severity: Severe Character: Dyspnea at Rest Aggravating Factor(s): Nothing Alleviating Factor(s): Nothing - Allergy/Home Medications Allergies/Adverse Reactions: Allergies Allergy/AdvReac Type Severity Reaction Status Date / Time No Known Allergies Allergy Verified 06/11/19 10:15 Home Medications: Home Medications predniSONE TAB* [Deltasone 20 MG TAB*] 10 mg PO DAILY 06/11/19 [History Confirmed 06/11/19] PMH/Surg Hx/FS Hx/Imm Hx Previously Healthy: No - Level 5 Caveat - Unresponsive Endocrine/Hematology History: Denies: Hx Diabetes Cardiovascular History: Reports: Hx Aneurysm - Abdominal, Hx Congestive Heart Failure, Hx Hypercholesterolemia, Hx Hypertension Respiratory History: Reports: 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, Other Respiratory Problems/Disorders - pulmonary hypertension Denies: Hx Asthma History: Denies: Hx Dialysis, Hx Renal Disease Musculoskeletal History: Reports: Other Musculoskeletal History - R hip fx and surgery Denies: Hx Back Problems Sensory History: Reports: Hx Glaucoma, Hx Legally Blind, Hx Macular Degeneration , Hx Vision Problem Denies: Hx Contacts or Glasses, Hx Deafness, Hx Hearing Aid Opthamlomology History: Reports: Hx Glaucoma, Hx Legally Blind, Hx Macular Degeneration, Hx Vision Problem Denies: Hx Contacts or Glasses Neurological History: Denies: Hx Dementia, Hx Seizures - Surgical History Surgery Procedure, Year, and Place: Pt reports R hip repair for fx in 2010, states placement of "a metal plate and 2 bolts" - Family History Known Family History: Positive: Respiratory Disease - Father with emphysema, Other - FHx unobtainable d/t pt's shortness of breath Family History: Mother with CVA - Social History Alcohol Use: None Alcohol Amount: drinks glass of wine before dinner every night Hx Substance Use: No Substance Use Type: Reports: None Hx Tobacco Use: Yes Smoking Status (MU): Former Smoker Review of Systems Positive: Shortness Of Breath All Other Systems Reviewed And Are Negative: No - Comments Additional Review of Systems Comments: Level 5 Caveat - Unresponsive Physical Exam - Summary Physical Exam Summary: Appearance: The patient is well-nourished in no acute pain. Skin: The skin is warm and dry, and skin color reflects adequate perfusion. HEENT: The head is normocephalic and atraumatic. The pupils are pinpoint and fixed. The conjunctivae are clear and without drainage. Nares are patent and without drainage. Mouth reveals moist mucous membranes, and the throat is without erythema and exudate. The external ears are intact. The ear canals are patent and without drainage. The tympanic membranes are intact. Neck: The neck is supple with full range of motion and non-tender. There are no carotid bruits. There is no neck vein distension. Respiratory: Chest is non-tender. Agonal breathing pattern. Cardiovascular: Heart is regular rate and rhythm. There is no murmur or rub auscultated. There is no peripheral edema and pulses are symmetrical and equal. Abdomen: The abdomen is soft and non-tender. There are normal bowel sounds heard in all four quadrants and there is no organomegaly palpated. Musculoskeletal: There is no back tenderness noted. There is good capillary refill. There is no peripheral edema or calf tenderness elicited. Bruises on left knee Neurological: Patient is unresponsive Psychiatric: The patient has an appropriate affect and does not exhibit any anxiety or depression. Triage Information Reviewed: Yes Vital Signs On Initial Exam: Initial Vital Signs Temp 34.2 F 06/11/19 09:29 Pulse 83 06/11/19 09:29 Resp 16 06/11/19 09:29 BP 212/78 06/11/19 09:29 Pulse Ox 94 06/11/19 09:29 Vital Signs Reviewed: Yes Diagnostics - Laboratory Result Diagrams: 06/11/19 09:40 06/11/19 09:40 Lab Statement: Any lab studies that have been ordered have been reviewed, and results considered in the medical decision making process. - Radiology CXR Radiology Interpretation Completed By: Radiologist Summary of Radiographic Findings: CXR reveals, per radiologist IMPRESSION: Moderate right and trace left pleural effusion with improved aeration relative to the most recent chest x-ray dated May 23, 2019. ED physician has reviewed this radiology report. - EKG 0948 Cardiac Rate: NL EKG Rhythm: Sinus Rhythm Summary of EKG Findings: EKG at 0948 reveals normal sinus rhythm with rate of 82 BPM. RBBB, left anterior fascicular block, probable LVH, unchanged from . This EKG was reviewed and interpreted by ED physician. Re-Evaluation - Re-Evaluation First Eval Re-Evaluation Time: 10:03 Comment: Pateint's ABG pH is 7.02, and ABG pCO2 is > 124 Second Eval Re-Evaluation Time: 10:30 Comment: Checked on patient's status Third Eval Re-Evaluation Time: 11:20 Comment: ABG pH is 7.05, ABG pCO2 is > 125 Disposition - Course Course Of Treatment: Ms. Fisher arrived unresponsive with spontaneous respirations. She was able to keep her pulse ox in the 90s on 100%. She has a DNI and DNR and was placed on BiPAP. She was given boluses of fluid as her pressure needed. This is likely a COPD exacerbation and she was given Solu- Medrol and a DuoNeb. Dr. Bernstein was contacted for admission to the ICU. - Diagnoses Provider Diagnoses: COPD exacerbation, Respiratory insufficiency - Physician Notifications Discussed Care Of Patient With: Sha Bernstein Time Discussed With Above Provider: 10:36 Instructed by Provider To: Other - Discussed patient care with Dr. Bernstein, who will come to ED to see pt. 11:02 - Spoke to Dr. Bernstein, who will discuss how to admit pt with Dr. Leslie. 11:40 - Dr. Bernstein accepts pt for admission. - Critical Care Time Critical Care Time: 30-74 min Discharge ED - Sign-Out/Discharge Documenting (check all that apply): Patient Departure - Admit - Discharge Plan Condition: Stable Disposition: ADMITTED TO [facility] - Billing Disposition and Condition Condition: STABLE Disposition: Admitted to [facility] - Attestation Statements Document Initiated by Scribe: Yes Documenting Scribe: Jennifer Flor Provider For Whom Scribe is Documenting (Include Credential): Blaise David, MD Scribe Attestation: I, Jennifer Flor, scribed for Blaise Hernandez MD on 06/11/19 at 1706. Scribe Documentation Reviewed: Yes Provider Attestation: The documentation as recorded by the scribe, Jennifer Flor accurately reflects the service I personally performed and the decisions made by me, Blaise Hernandez MD Status of Scribe Document: Viewed
--- OUTSIDE RECORDS SUMMARY | 2019-06-11 09:37 | XMS REPORT ---
:1930 Author Organization [facility] Care Team Providers Name Role Phone Unavailable Unavailable Unavailable Problems This patient has no known problems. Allergies, Adverse Reactions, Alerts Allergy Allergy Status Severity Reaction(s) Onset Inactive Treating Comments Name Type Date Date Clinician Unknown None Active Unknown None Unknown No Known Allergies For This Patient Medications Ordered Filled Start Stop Current Ordering Indication Dosage Frequency Signature Comments Components Medication Medication Date Date Medication? Clinician (SIG) Name Name No Known No Known No None None None Medications Medications For This For This Patient Patient Procedures This patient has no known procedures. Results This patient has no known results.
--- OUTSIDE RECORDS SUMMARY | 2019-06-11 09:37 | XMS REPORT ---
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
--- OUTSIDE RECORDS SUMMARY | 2019-06-11 09:37 | XMS REPORT ---
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
--- OUTSIDE RECORDS SUMMARY | 2019-06-11 09:37 | XMS REPORT ---
:1930 Author Organization [facility] Care Team Providers Name Role Phone Unavailable [...]
--- OUTSIDE RECORDS SUMMARY | 2019-06-11 09:37 | XMS REPORT ---
:1930 Author Organization [facility] Care Team Providers Name Role Phone Unavailable Unavailable Unavailable Problems Condition Condition Condition Status Onset Resolution Last Treating Comments Name Details Category Date Date Treatment Clinician Date Chronic Chronic Diagnosis Active 2018-06 Nella obstructive obstructive 2-06 Ingrahm pulmonary pulmonary [id number] disease disease with with (acute) (acute) exacerbatio exacerbatio n n Acute and Acute and Diagnosis Active 2018-06 Nella chronic chronic 2-06 Ingrahm respiratory respiratory [id number] failure failure with with hypercapnia hypercapnia Acute Acute Diagnosis Active 2018-06 Nella respiratory respiratory 2-06 Ingrahm failure failure [id number] with with hypoxia hypoxia 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 [id number] with heart with heart failure failure Unspecified Unspecified Diagnosis Active Nella 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-18 Ingrahm (congestive (congestive [id number] ) heart ) heart failure failure Pulmonary Pulmonary Diagnosis Active 2018- Nella hypertensio hypertensio - Ingrahm n, n, [id number] unspecified unspecified Unspecified Unspecified Diagnosis Active Nella glaucoma glaucoma Ingrm [id number] Dependence Dependence Diagnosis Active Nella on on Ingrahm supplementa supplementa [id number] l oxygen l oxygen 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
--- OUTSIDE RECORDS SUMMARY | 2019-06-11 09:37 | XMS REPORT ---
:1930 Author Organization [facility] Care Team Providers Name Role Phone Unavailable [...]
--- OUTSIDE RECORDS SUMMARY | 2019-06-11 09:37 | XMS REPORT ---
:1930 Author Organization [facility] Care Team Providers Name Role Phone Unavailable Unavailable Unavailable Problems Condition Condition Condition Status Onset Resolution Last Treating Comments Name Details Category Date Date Treatment Clinician Date Chronic Chronic Diagnosis Active 2018-06 Nella obstructive obstructive 2-11 [facility] pulmonary pulmonary [id number] disease disease with with (acute) (acute) exacerbatio [...]
[2019-06-11] MEDS ORDERED: Albuterol/Ipratropium NEB.SOL* Albuterol 2.5 MG/Ipratropium 0.5 MG 3 ML INH ONE (09:44)
[2019-06-11 10:04] LABS: ABS Lymphocytes 0.4 10^3/ul (1.0-4.8); ABS Monocytes 0.6 10^3/ul (0-0.8); ABS Neutrophils 9.5 10^3/ul (1.5-7.7); Eosinophil % 0.1 %; Hematocrit 44 % (35-47); Lymphocyte % 3.3 %; Mean Corpuscular HGB Conc 32 g/dL (31-36); Mean Corpuscular Hemoglobin 29 pg (27-31); Mean Corpuscular Volume 92 fL (80-97); Mean Platelet Volume 9.1 fL (7.4-10.4); Platelet Count 166 10^3/uL (150-450); Red Blood Count 4.83 10^6 /uL (3.70-4.87); Red Cell Distribution Width 16 % (10-15); White Blood Count 10.5 10^3/uL (3.5-10.8)
[2019-06-11 10:10] LABS: INR 0.85 (0.82-1.09)
[2019-06-11 10:22] LABS: ALT 27 U/L (7-52); AST 40 U/L (13-39); Albumin 3.9 g/dL (3.2-5.2); Albumin/Globulin Ratio 1.1 (1-3); Alkaline Phosphatase 126 U/L (34-104); BUN/Creatinine Ratio 34.9 (8-20); Blood Urea Nitrogen 37 mg/dL (6-24); C Reactive Protein 50.24 mg/L (<8.01); Calcium 9.6 mg/dL (8.6-10.3); Chloride 90 mmol/L (101-111); EGFR African American 59.2 (>60); EGFR Non-African American 48.9 (>60); Globulin 3.5 g/dL (2-4); Glucose 144 mg/dL (70-100); Potassium 4.9 mmol/L (3.5-5.0); Sodium 138 mmol/L (135-145); Total Protein 7.4 g/dL (6.4-8.9)
[2019-06-11 10:32] LABS: Anion Gap 5 mmol/L (2-11); CO2 Carbon Dioxide 43 mmol/L (22-32); Troponin I 0.08 ng/mL (<0.03)
--- NOTE | 2019-06-11 12:05 | PN ---
Date of Service: 06/11/19 Vital Signs: Temp Pulse Resp BP SpO2 FiO2 93.6 F 75 21 81/51 100 60 06/11/19 11:45 06/11/19 11:45 06/11/19 11:45 06/11/19 11:45 06/11/19 11:45 06/11 11:01 Physical Exam: Gen: comatosed HEENT: on bipap Lungs: b/l wheezing Cardiac: s1 s2 no murmur Abdomen: soft Extremities: no edema Neuro: unaware and comatose Fluid Balance (Past 24 Hours): I= O= Net Intake & Output 06/09/19 06/10/19 06/11/19 06/12/19 06:59 06:59 06:59 06:59 Intake Total 1000 Balance 1000 Weight 150 lb Intake: IV Fluids 1000 Labs: Laboratory Results - last 24 hr 06/11/19 06/11/19 06/11/19 09:40 09:40 09:40 WBC 10.5 RBC 4.83 Hgb 14.0 Hct 44 MCV 92 MCH 29 MCHC 32 RDW 16 H Plt Count 166 MPV 9.1 Neut % (Auto) 90.6 Lymph % (Auto) 3.3 [place] % (Auto) 5.7 Eos % (Auto) 0.1 Baso % (Auto) 0.3 Absolute Neuts (auto) 9.5 H Absolute Lymphs (auto) 0.4 L Absolute Monos (auto) 0.6 Absolute Eos (auto) 0.0 Absolute Basos (auto) 0.0 Absolute Nucleated RBC 0.0 Nucleated RBC % 0.0 INR (Anticoag Therapy) 0.85 Patient Temperature ABG pH ABG pCO2 ABG pO2 ABG HCO3 ABG O2 Saturation ABG Base Excess Respiration Rate O2 Delivery Device Ventilator Type Vent Mode FiO2 Inspiratory Time PEEP Pressure Support Pressure Control EPAP IPAP BiPAP Sodium 138 Potassium 4.9 Chloride 90 L Carbon Dioxide 43 H* Anion Gap 5 BUN 37 H Creatinine 1.06 H Est GFR ( Amer) 59.2 Est GFR (Non-Af Amer) 48.9 BUN/Creatinine Ratio 34.9 H Glucose 144 H Lactic Acid Calcium 9.6 Total Bilirubin 0.60 AST 40 H ALT 27 Alkaline Phosphatase 126 H Troponin I 0.08 H* C-Reactive Protein 50.24 H B-Natriuretic Peptide Total Protein 7.4 Albumin 3.9 Globulin 3.5 Albumin/Globulin Ratio 1.1 06/11/19 06/11/19 06/11/19 09:40 09:40 09:50 WBC RBC Hgb Hct MCV MCH MCHC RDW Plt Count MPV Neut % (Auto) Lymph % (Auto) [place] % (Auto) Eos % (Auto) Baso % (Auto) Absolute Neuts (auto) Absolute Lymphs (auto) Absolute Monos (auto) Absolute Eos (auto) Absolute Basos (auto) Absolute Nucleated RBC Nucleated RBC % INR (Anticoag Therapy) Patient Temperature Not Reportable ABG pH 7.02 L* ABG pCO2 > 124 H* ABG pO2 93 ABG HCO3 TNP ABG O2 Saturation 97.7 ABG Base Excess TNP Respiration Rate Not Reportable O2 Delivery Device nrb Ventilator Type Not Reportable Vent Mode Not Reportable FiO2 15 Inspiratory Time Not Reportable PEEP Not Reportable Pressure Support Not Reportable Pressure Control Not Reportable EPAP Not Reportable IPAP Not Reportable BiPAP Not Reportable Sodium Potassium Chloride Carbon Dioxide Anion Gap BUN Creatinine Est GFR ( Amer) Est GFR (Non-Af Amer) BUN/Creatinine Ratio Glucose Lactic Acid 1.4 Calcium Total Bilirubin AST ALT Alkaline Phosphatase Troponin I C-Reactive Protein B-Natriuretic Peptide 780 H Total Protein Albumin Globulin Albumin/Globulin Ratio 06/11/19 10:59 WBC RBC Hgb Hct MCV MCH MCHC RDW Plt Count MPV Neut % (Auto) Lymph % (Auto) [place] % (Auto) Eos % (Auto) Baso % (Auto) Absolute Neuts (auto) Absolute Lymphs (auto) Absolute Monos (auto) Absolute Eos (auto) Absolute Basos (auto) Absolute Nucleated RBC Nucleated RBC % INR (Anticoag Therapy) Patient Temperature ABG pH 7.05 L* ABG pCO2 > 125 H* ABG pO2 65 L ABG HCO3 TNP ABG O2 Saturation 92.3 L ABG Base Excess TNP Respiration Rate O2 Delivery Device Ventilator Type Vent Mode FiO2 Inspiratory Time PEEP Pressure Support Pressure Control EPAP IPAP BiPAP Sodium Potassium Chloride Carbon Dioxide Anion Gap BUN Creatinine Est GFR ( Amer) Est GFR (Non-Af Amer) BUN/Creatinine Ratio Glucose Lactic Acid Calcium Total Bilirubin AST ALT Alkaline Phosphatase Troponin I C-Reactive Protein B-Natriuretic Peptide Total Protein Albumin Globulin Albumin/Globulin Ratio Plan: This patient is a 88 year old F presenting to [facility] by EMS accompanied by daughter. Per EMS Pt has a PMHx of COPD, and pt is legally blind. Pt has a FHx of stroke. Pt is on BiPAP at home, and daughter put her on nasal cannula before calling EMS. Pt has been in decline for 2 days. Pt is normally able to converse and does not take any narcotics according to daughter. At baseline she walks with a walker co2 narcosis from copd exacerbation DNR/DNI with trial of fluids, bipap, no pressors or invasive procedures cont nebs cont methylprednisolone give vanc cefepime and aztreonam hypotensive no amenable to fluid septic shock family understands regarding no escalation of care at this time awaiting family for possible ending trial of fluid and bipap will call michelle heri ppx Critical Care Time: 45 min
[2019-06-11] MEDS ORDERED: Cefepime ADVAN(*) 1 GM in NS 0.9% 50 ML* 50 ML IVPB SCH (12:30)
[2019-06-11] MEDS ORDERED: Cefepime 1 GM in Dextrose(*) 1 GM/50 ML q12h (Duplex) IV SCH (12:30)
[2019-06-11 12:45] LABS: Urine Appearance Cloudy; Urine Bilirubin Negative (Negative); Urine Blood Negative (Negative); Urine Color Yellow; Urine Glucose Negative (Negative); Urine Ketones Negative (Negative); Urine Nitrite Negative (Negative); Urine Protein Negative (Negative); Urine Specific Gravity 1.015 (1.010-1.030); Urine Urobilinogen Negative (Negative)
[2019-06-11] MEDS ORDERED: Aztreonam (*) 1 GM in NS 0.9% 50 ML* 50 ML IVPB SCH (13:00)
[2019-06-11] MEDS ORDERED: Vancomycin per Pharmacy* NOTE FOLLOW UP SCH (13:00)
[2019-06-11] MEDS ORDERED: Vancomycin(*) 1,000 MG in NS 0.9% 250 ML* 250 ML IVPB ONE (13:30)
[2019-06-11] MEDS ORDERED: Heparin VIAL(*) 5000 UNITS/ML VIAL (FIVE THOUSAND) SUBCUT SCH (14:00)
[2019-06-11] MEDS ORDERED: Albuterol/Ipratropium NEB.SOL* Albuterol 2.5 MG/Ipratropium 0.5 MG 3 ML INH SCH (14:00)
[2019-06-11] MEDS ORDERED: Morphine INJ* 2 MG/ML 1 ML SYRINGE (TWO MG - NEW SYRINGE VERSION) IV ONE (14:21)
[2019-06-11] MEDS ORDERED: Morphine INJ* 2 MG/ML 1 ML SYRINGE (TWO MG - NEW SYRINGE VERSION) ONE (14:22)
[2019-06-11] MEDS ORDERED: LORazepam INJ* 2 MG/ML 1 ML VIAL IV PUSH ONE (14:23)
[2019-06-11] MEDS ORDERED: Lorazepam PYXIS KEY PRN (14:23)
[2019-06-11] MEDS ORDERED: Morphine PCA 5 MG/ML * Titrate per Protocol PCA SCH (14:30)
[2019-06-11 15:00] VITALS: BP 128/56
[2019-06-11] MEDS ORDERED: methylPREDNISolone SOD 40 MG* 1 ML VIAL IV SCH (21:00)
[2019-06-12] MEDS ORDERED: Vancomycin(*) 1,000 MG in NS 0.9% 250 ML* 250 ML IV SCH (14:00)
[2019-06-14] MEDS ORDERED: Vancomycin Trough Check NOTE FOLLOW UP ONE (13:30)
== END 2019-06-11 15:25 | disposition expired | DRG 871 ==
LOC: ED 09:22 → ICU 11:49
PROVIDERS: ADMIT Internal Medicine Critical Care Medicine; ATTEND Internal Medicine Critical Care Medicine
PROC: 5A09357 Assistance with Respiratory Ventilation, Less than 24 Consecutive Hours, Continuous Positive Airway Pressure (ICD-10-PCS; principal; 2019-06-11)
DX: A41.9 Sepsis, unspecified organism (principal); R40.20 Unspecified coma; R65.21 Severe sepsis with septic shock; H54.8 Legal blindness, as defined in USA; I11.0 Hypertensive heart disease with heart failure; I50.9 Heart failure, unspecified; E78.00 Pure hypercholesterolemia, unspecified; I27.20 Pulmonary hypertension, unspecified; J43.9 Emphysema, unspecified; H40.9 Unspecified glaucoma; H35.30 Unspecified macular degeneration; Z66 Do not resuscitate; R06.89 Other abnormalities of breathing; Z51.5 Encounter for palliative care; Z87.891 Personal history of nicotine dependence
CPT/HCPCS: 36415; 71045; 80053; 81003; 82803; 83605; 83880; 84484; 85025; 85610; 86140; 87040; 87641; 87899; 93005; 96361; 96374; 99285; A9270-GY; J0692; J2060; J2270; J2930; J3370